=== PATIENT | male | born 1950 | race Caucasian/White ===

== ENCOUNTER → 2017-08-28 | Outpatient (CLI) | payer MEDICARE, OTHER ==
--- NOTE | 2017-09-09 11:01 | P.ARTDOP ---
Arterial Doppler LOWER EXTREMITY ARTERIAL DOPPLER: DATE OF SERVICE: 08/28/2017 Reason for study: Discoloration and decreased pulses left foot. Doppler waveforms: Multiphasic bilaterally throughout. Pulse volume recording: Normal in configuration. Pressure gradients: None. Ankle-brachial indices: Greater than 1 bilaterally. Toe pressures: 157 on the right, 120 on the left Impression: Normal study.
== END | disposition home or self-care (01) ==
LOC: RADUSWWP 12:34
PROVIDERS: ATTEND Internal Medicine
DX: I73.9 Peripheral vascular disease, unspecified (principal)
CPT/HCPCS: 93923

== ENCOUNTER → 2021-03-30 | Outpatient (CLI) | payer MEDICARE ==
[~2021-03-30] MED LIST: REGADENOSON 0.4 MG/5 ML SYRINGE IV PRN
--- NOTE | 2021-03-30 12:39 | P.STRESS ---
- Stress Test Note Stress Test Results/Findings: Exam Performed: NM stress lexiscan cardiolite Exam Date: 03/30/21 Reason for Exam: CP Height: 6 ft Weight: 100 kg Protocol: LEXISCAN CARDIOLITE Stage: NA Duration of Exercise: NA Resting Heart Rate: 56 Resting Blood Pressure: 136/69 Maximum Achieved Heart Rate: 73 Maximum Achieved Blood Pressure: 143/60 85% PMHR: 128 100% PMHR: 150 METS: NA Technologist Comment: Stress Test Results/Findings: Baseline heart rate 56 beats a minute, Baseline blood pressure 136/69 mmHg Baseline twelve-lead EKG shows sinus rhythm normal FL narrow QRS normal ST segments Patient received Lexiscan infusion per protocol No significant change in heart rate blood pressure Occasional PVCs No ECG abnormalities Nuclear portion will be reported separately
--- NOTE | 2021-03-30 12:56 | NM ---
EXAMINATION TYPE: NM stress lexiscan cardiolite DATE OF EXAM: 03/30/2021 COMPARISON: NONE HISTORY: R07.9 chest pain TECHNIQUE: After the intravenous administration of 9.7 mCi Tc 99m Sestamibi - Cardiolite resting SPE CT images acquired 45 minutes post injection. The patient received 0.4mg Lexiscan, 24.8 mCi Tc 99m Sestamibi - Stress images obtained [address] injection FINDINGS: Review of stress and rest SPECT images demonstrates decreased perfusion involving the cardiac apex on stress images. Stress-induced ischemia is not excluded. Gated analysis shows normal wall motion with an estimated left ventricular ejection fraction of 64 %. IMPRESSION: decreased perfusion involving the cardiac apex on stress images. Stress-induced ischemia is not exclu ded.
== END | disposition home or self-care (01) ==
LOC: RADNMMAIN 07:53
PROVIDERS: ATTEND Family Medicine
DX: R07.9 Chest pain, unspecified (principal)
CPT/HCPCS: 93017; 78452; A9500; J2785

== ENCOUNTER → 2021-05-23 | Outpatient (CLI) | payer MEDICARE | END | disposition home or self-care (01) | LOC: RADUSWWP 12:28 | PROVIDERS: ATTEND Family Medicine | DX: R09.89 Other specified symptoms and signs involving the circulatory and respiratory systems (principal); L81.9 Disorder of pigmentation, unspecified | CPT/HCPCS: 93922 ==

== ENCOUNTER → 2022-02-06 | Outpatient (CLI) | payer MEDICARE, OTHER ==
--- NOTE | 2022-02-06 19:20 | CT ---
EXAMINATION TYPE: CT angio chest DATE OF EXAM: 02/06/2022 COMPARISON: None HISTORY: ELEVATED D DIMER CT DLP: 448.1 mGycm Automated exposure control for dose reduction was used. CONTRAST: Performed with IV Contrast, patient injected with 80ml mL of Isovue 370. Images obtained from the thoracic inlet to the diaphragm with the IV contrast. There are Three-D postprocessed images. The lungs are clear of infiltrate. No pleural effusion or pne umothorax. Heart size is normal. No pericardial effusion. Upper abdominal soft tissues are intact. There are no hilar masses. There is no mediastinal adenopathy. Thoracic aorta is intact. There is mil d 4 cm aneurysm of the ascending aorta. No dissection. There is normal contrast opacification of the pulmonary arteries. There is no filling defect. There i s some mild spurring in the thoracic spine. Sternum is intact. IMPRESSION: No evidence of pulmonary embolism. Mild aneurysm of the ascending aorta.
== END | disposition home or self-care (01) ==
LOC: RADCTMAIN 18:02
PROVIDERS: ATTEND Family Medicine
DX: R79.89 Other specified abnormal findings of blood chemistry (principal)
CPT/HCPCS: 71275; Q9967

== ENCOUNTER 2023-05-27 09:17 | Day surgery (SDC) | payer MEDICARE, OTHER ==
[2023-05-27] MEDS ORDERED: LACTATED RINGERS 1,000 ML IV ONE (10:13)
[2023-05-27 10:16] VITALS: TEMP 97.5
[2023-05-27] MEDS ORDERED: PROPOFOL 10 MG/ML 20 ML VIAL IV ONE (10:34)
--- NOTE | 2023-05-27 10:39 | P.GSHP ---
History of Present Illness H&P Date: 05/27/23 Chief Complaint: Abnormal stool study 72-year-old male here for colonoscopy. Had a recent cologuard that was abnormal. No bowel complaints. No family history of colon cancer. Patient had polyps at his last colonoscopy 2012 he says. Past Medical History Past Medical History: Hyperlipidemia, Hypertension Additional Past Medical History / Comment(s): muscle and joint pain, History of Any Multi-Drug Resistant Organisms: None Reported Past Surgical History: No Surgical Hx Reported Past Anesthesia/Blood Transfusion Reactions: No Reported Reaction Smoking Status: Never smoker Medications and Allergies Home Medications Medication Instructions Recorded Confirmed Type Aspirin [Adult Low Dose Aspirin EC] 81 mg PO DAILY 05/26/23 05/26/23 History Atorvastatin Calcium 10 mg PO DAILY 05/26/23 05/27/23 History Losartan Potassium 100 mg PO DAILY 05/26/23 05/26/23 History NIFEdipine [NIFEdipine ER 90 mg PO DAILY 05/26/23 05/26/23 History (Osmotic)] Vit D (Unk) 1 tab PO DAILY 05/26/23 05/26/23 History atenoloL [Tenormin] 50 mg PO DAILY 05/26/23 05/27/23 History Allergies Allergy/AdvReac Type Severity Reaction Status Date / Time allopurinol Allergy Unknown Unknown Verified 05/27/23 09:58 Surgical - Exam Vital Signs Temp Pulse Resp BP Pulse Ox 97.5 F L 58 L 16 152/77 98 05/27/23 10:07 05/27/23 10:07 05/27/23 10:07 05/27/23 10:07 05/27/23 10:07 Physical exam: General: Well-developed, well-nourished HEENT: Normocephalic, sclerae nonicteric Abdomen: Nontender, nondistended Extremities: No edema Neuro: Alert and oriented Assessment and Plan (1) Abnormal stool test Narrative/Plan: Will proceed with colonoscopy at this time. Current Visit: Yes Status: Acute Code(s): R19.5 - OTHER FECAL ABNORMALITIES SNOMED Code(s): 953191077
--- NOTE | 2023-05-27 10:54 | P.PCN ---
Date of Procedure: 05/27/23 Procedure(s) Performed: PREOPERATIVE DIAGNOSIS: Abnormal stool test POSTOPERATIVE DIAGNOSIS: Transverse colon polyp, poor prep PROCEDURE: Colonoscopy with snare polypectomy ANESTHESIA: MAC SURGEON: Stephen Baird M.D. SPECIMENS: Polyp ENDOSCOPIC PROCEDURE: The patient was placed on the endoscopy table in the left decubitus position. The Olympus colonoscope was inserted into the anus and passed under direct visualization to the base of the cecum. The appendiceal orifice was visualized. From that point the scope was slowly withdrawn inspecting all surfaces carefully. There were no neoplastic inflammatory or polypoid lesions throughout the cecum or ascending colon. In the transverse colon a small polyp was seen and removed using the snare with cautery technique. The remainder of the transverse descending sigmoid and rectum was free of any obvious abnormalities. The patient's prep was poor and there was retained liquid and solid stool throughout the colon limiting the visualization of the mucosa. No visible diverticulosis. Digital rectal examination was normal. The patient was taken to the recovery room in stable condition per anesthesia guidelines. RECOMMENDATIONS: Await biopsy results. Recommend repeat colonoscopy in 3-6 months given the patient's poor prep.
[2023-05-27 11:32] VITALS: BP 126/68; PULSE 47; RESP 16
== END 2023-05-27 11:34 | disposition home or self-care (01) ==
LOC: ORWHC2ENDO 09:17
PROVIDERS: ATTEND Surgery
DX: D12.3 Benign neoplasm of transverse colon (principal); R19.5 Other fecal abnormalities; I10 Essential (primary) hypertension; E78.5 Hyperlipidemia, unspecified; Z79.1 Long term (current) use of non-steroidal anti-inflammatories (NSAID); Z79.02 Long term (current) use of antithrombotics/antiplatelets; Z79.82 Long term (current) use of aspirin; Z79.899 Other long term (current) drug therapy; Z98.890 Other specified postprocedural states; Z88.9 Allergy status to unspecified drugs, medicaments and biological substances
CPT/HCPCS: 88305; 45385; J2704

== ENCOUNTER → 2023-08-18 | Outpatient (CLI) | payer MEDICARE, OTHER ==
--- NOTE | 2023-08-18 18:42 | MR ---
EXAMINATION TYPE: MR knee LT wo con DATE OF EXAM: 08/18/2023 COMPARISON: Outside radiographs 08/12/2023 HISTORY: 72-year-old male M25.562 Left knee pain. TECHNIQUE: Multiplanar, multisequence imaging of the left knee is performed without IV contrast. FINDINGS: The ACL and PCL are intact. There is edema on either side of the intact MCL fibers. There is additional heterogeneous signal at the femoral attachment of the LCL proper and diffuse thic kening and heterogeneous signal in the popliteus tendon. Generalized soft tissue swelling. Prominent prepatellar soft tissue swelling with a trace prepatellar bursitis. There is abnormal thickening and intermediate signal and prominent interstitial tearing within the qu adriceps tendon. Prominent thickening of the distal third patellar tendon as well. Some edema within the retropatellar fat pad is noted. There is a mild to moderate joint effusion with mild chronic synovitis. Scattered muscular edema is noted particularly in the quadriceps musculature, to a lesser degree with in the hamstrings musculature, and medial gastrocnemius. There is an oblique tear involving the junction of posterior horn and body of the medial meniscus. Mo derate irregular cartilage thinning along the mid aspect of the medial compartment. On the coronal series, there is horizontally orientated signal involving the anterior horn and body o f the lateral meniscus but not clearly demonstrated on the sagittal series. A subtle horizontal cleav age tear is difficult to exclude. Overall lateral compartment articular cartilage volume is maintaine d. Overall patellofemoral compartment articular cartilage volume is maintained. Normal popliteal artery anatomy and muscle bulk. No suspicious bone marrow replacement. IMPRESSION: 1. Grade 1 sprain of the MCL and femoral attachment of the LCL proper. Additional moderate contusion of the popliteus tendon. 2. Generalized soft tissue swelling. Prominent prepatellar soft tissue swelling with a trace prepatel lar bursitis. 3. Scattered muscular edema may be reactive to altered biomechanics or could represent muscle strains . Moderate knee joint effusion and mild chronic synovitis. 4. Correlate for pronounced tendinosis versus contusion of the quadriceps tendon with edematous thick ening and areas of interstitial tear. No high-grade tear or rupture. Also, moderate insertional martínez lar tendinosis. Some edema within the suprapatellar fat pad may be reactive to the quadriceps tendon injury or could represent fat pad impingement syndrome. 5. Oblique tear at the junction of the posterior horn and body of the medial meniscus. Mild overall m edial compartmental OA. 6. The coronal series shows horizontally oriented signal involving the anterior horn and body of the lateral meniscus. Not confirmed on sagittal series. Unable to exclude subtle horizontal cleavage tear .
== END | disposition home or self-care (01) ==
LOC: RADMRIMAIN 09:59
PROVIDERS: ATTEND Orthopaedic Surgery
DX: M17.12 Unilateral primary osteoarthritis, left knee (principal); M23.322 Other meniscus derangements, posterior horn of medial meniscus, left knee; M67.864 Other specified disorders of tendon, left knee; M70.42 Prepatellar bursitis, left knee; M25.462 Effusion, left knee; M67.862 Other specified disorders of synovium, left knee; M79.89 Other specified soft tissue disorders

== ENCOUNTER → 2023-09-10 | Outpatient (CLI) | payer MEDICARE, OTHER ==
--- NOTE | 2023-09-10 12:30 | MR ---
EXAMINATION TYPE: MR knee RT wo con DATE OF EXAM: 09/10/2023 COMPARISON: 08/12/2023 HISTORY: Right knee pain. TECHNIQUE: Multiplanar, multisequence imaging of the right knee is performed without IV contrast. FINDINGS: MEDIAL MENISCUS: There is grade 3 abnormal signal posterior horn medial meniscus compatible with a li near tear. LATERAL MENISCUS: Grade 3 signal involving the posterior horn and body lateral meniscus compatible wi th tear. CRUCIATE LIGAMENTS: The anterior and posterior cruciate ligaments are intact and unremarkable. COLLATERAL LIGAMENTS: The medial collateral ligament complex is intact and unremarkable. There is increased signal along the lateral margin of the fibular head in the soft tissue just at the site of tendinous complex compatible partial tear of the fibular attachment and the biceps femoris a nd lateral collateral ligament. EXTENSOR MECHANISM: Visualized quadriceps and patellar tendons are intact. There is mixed signal in t he prepatellar space likely representing chronic prepatellar bursitis with hemorrhagic component. EFFUSION: Trace amount of fluid in the suprapatellar bursa. POPLITEAL CYST: There are numerous soft tissue lobulated areas of abnormal fluid signal likely on th e basis of either popliteal fossa or ganglion cyst. TRICOMPARTMENT SPACES: Mild narrowing of the medial compartment and patellofemoral compartment with j oint space with no erosive changes. CARTILAGE: There is a focal area of grade II chondromalacia involving the medial femoral articular ca rtilage. Along the lateral patellar facet there is reduced thickness of the patellar cartilage with a djacent marrow changes compatible with grade III chondromalacia. BONE MARROW SIGNAL: Marrow edema involving the head of the fibula with no definite fracture line most typical of contusion. IMPRESSION: 1. Edema involving the head of the fibula with no definite fracture line. Findings most compatible wi th bone contusion. Microtrabecular fracture in the differential diagnosis 2. There is a partial tear involving the fibular attachment of biceps femoris and lateral collateral ligament. 3. Subtle linear tear posterior horn medial and lateral meniscus. 4. Multiple cystic structures in the posterior soft tissues likely representing popliteal or ganglion cysts. 5. Prepatellar bursitis with hemorrhagic component likely on a remote basis.
== END | disposition home or self-care (01) ==
LOC: RADMRIMAIN 10:06
PROVIDERS: ATTEND Orthopaedic Surgery
DX: M23.641 Other spontaneous disruption of lateral collateral ligament of right knee (principal); M23.321 Other meniscus derangements, posterior horn of medial meniscus, right knee; M23.351 Other meniscus derangements, posterior horn of lateral meniscus, right knee; M79.89 Other specified soft tissue disorders; M70.41 Prepatellar bursitis, right knee; R60.0 Localized edema

== ENCOUNTER 2023-09-24 07:49 | Day surgery (SDC) | payer MEDICARE, OTHER ==
--- NOTE | 2023-09-23 19:16 | HP ---
HISTORY AND PHYSICAL Surgery is scheduled for 09/24/2023. HISTORY OF PRESENT ILLNESS: Prieto Fournier is a 72-year-old gentleman seen with progressive left knee pain. We discussed options regarding treatment. He elected to proceed with left knee arthroscopy. Consent was obtained. Cardiac clearance was provided. PAST MEDICAL HISTORY: Hypertension, hyperlipidemia, cardiovascular disease. PAST SURGICAL HISTORY: Noncontributory. DAILY MEDICATIONS: 1. Aspirin. 2. Atenolol. 3. Atorvastatin. 4. Losartan. 5. Cardizem. ALLERGIES: Allopurinol. SOCIAL HISTORY: Denies tobacco use. PHYSICAL EVALUATION OF THE LEFT KNEE: His range of motion is 0 to 120 degrees. He has mild effusion. Tenderness along the medial and lateral joint lines. He has a positive medial and positive lateral Eyad's. Ligaments are stable. Hip rotation is without pain. Distal neurovascular exam is intact. IMAGING STUDIES: Left knee radiographs revealed mild osteoarthritis. Left knee MRI revealed medial meniscal tear, possible lateral meniscal tear, tenosynovitis. IMPRESSION: 1. Internal derangement of left knee with medial meniscal tear. 2. Hypertension. 3. Hyperlipidemia. 4. Cardiovascular disease. PLAN: Left knee arthroscopy with partial medial meniscectomy, partial synovectomy, and debridement. MMODL / IJN: [id number] /
[2023-09-24] MEDS: LACTATED RINGERS 1,000 ML IV ONE (08:40)
[2023-09-24] MEDS ORDERED: LIDOCAINE 1% (10MG/ML) FOR IV START INTRADERMA PRN (08:54)
[2023-09-24] MEDS ORDERED: LACTATED RINGERS 1,000 ML IV SCH (08:54)
[2023-09-24] MEDS ORDERED: HYDROmorphone 0.5 MG/0.5 ML SYRINGE IVP PRN (08:54)
[2023-09-24] MEDS: DEXAMETHASONE SOD PHOSPHATE 4 MG/ML 1 ML VIAL IV ONE (08:55)
[2023-09-24] MEDS: ONDANSETRON 4 MG/2 ML VIAL IVP ONE (08:55)
[2023-09-24 09:17] VITALS: RESP 18
[2023-09-24] MEDS ORDERED: LIDOCAINE 1% INJ 10MG/ML (20 ML MDV) ONE (09:20)
[2023-09-24] MEDS ORDERED: fentaNYL (PF) 50 MCG/ML 2 ML AMP ONE (09:20)
[2023-09-24] MEDS ORDERED: GLYCOPYRROLATE 0.2 MG/ML 2 ML VIAL ONE (09:20)
[2023-09-24] MEDS ORDERED: PROPOFOL 10 MG/ML 20 ML VIAL IV ONE (09:20)
[2023-09-24] MEDS ORDERED: MIDAZOLAM 2 MG/2 ML VIAL ONE (09:20)
[2023-09-24] MEDS: BUPIVACAINE (PF) 0.25% 30 ML VIAL SQ ONE (09:45)
--- NOTE | 2023-09-24 10:12 | P.OP ---
Date of Procedure: 09/24/23 Preoperative Diagnosis: Internal derangement left knee Postoperative Diagnosis: 1. Tear medial and lateral meniscus left knee 2. Grade IV chondromalacia medial femoral condyle left knee 3. Reactive synovitis medial, lateral and suprapatellar compartments left knee Procedure(s) Performed: 1. Arthroscopic partial medial and lateral meniscectomy left knee 2. Arthroscopic microfracture medial femoral condyle left knee 3. Arthroscopic partial synovectomy medial, lateral and suprapatellar compartments left knee Anesthesia: DIA, local Surgeon: Levy Chau Estimated Blood Loss (ml): 5 Pathology: none sent Condition: stable Disposition: PACU Indications for Procedure: 72-year-old patient seen with progressive left knee pain. After having treatment options discussed, he elected to proceed with arthroscopy. Operative Findings: See description of procedure Description of Procedure: Patient was taken to the operative suite. Patient underwent a general anesthetic by the department of anesthesia. Patient was given preoperative antibiotics. The left lower extremity was placed in a well-padded arthroscopic leg downing. The left leg was prepped and draped in the normal sterile orthopedic fashion. A lateral parapatellar and suprapatellar incision was made. Trochars were inserted. Arthroscopy was initiated. Suprapatellar pouch revealed diffuse thick reactive synovitis. The patellofemoral joint appeared to articular congruently. There was mild grade I chondromalacia. The scope was guided into the medial gutter. No loose bodies or plica were identified. The scope was then guided into the medial compartment. A medial parapatellar incision was made. Trocar inserted followed by probe. There was a radial tear involving the posterior horn of the medial meniscus. There was thick reactive synovitis anteriorly. There was an area of grade III/IV chondromalacia involving the medial femoral condyle with some large osteochondral flap tears. I performed a partial medial meniscectomy getting down to stable meniscal tissue. I performed a chondroplasty of the medial femoral condyle getting down to stable osteochondral tissue. I performed a partial synovectomy decompressing the reactive synovitis anteriorly. I did note an area of grade IV chondromalacia/exposed bone along the medial femoral condyle measuring about a centimeter in diameter. I introduced a microfracture awl and I performed a microfracture to that area of exposed bone penetrating the bone with resultant bleeding at the microfracture site. The residual meniscus was probed and was found to be stable. The residual osteochondral surface was stable. There was good decompression of the synovitis. Scope and probe were then guided into the intercondylar notch. Cruciates were identified, probed and found to be stable. The scope and probe were then guided into lateral compartment. There was a radial tear mid body lateral meniscus. There was thick reactive synovitis anteriorly. There was grade I chondromalacia of the lateral compartment with no significant tearing. I performed a partial lateral meniscectomy getting down to stable meniscal tissue. I performed a partial synovectomy decompressing the reactive synovitis. The residual meniscus was stable. There was good decompression of the synovitis. The scope was in guided back into the suprapatellar compartment. I introduced a motorized shaver into the suprapatellar compartment. I performed a partial synovectomy. The shaver was removed. There was good decompression of the synovitis. I now took one more look around the entire knee, no residual debris. Instruments were now removed from the joint. The joint was infiltrated with .25% Marcaine. Steri-Strips were applied to the portal sites. Sterile dressings were applied. The patient was placed into a PREETI hose. No tourniquet was utilized. The patient was awakened, transferred to a bed and taken to recovery stable satisfactory condition.
[2023-09-24 10:28] VITALS: TEMP 97
[2023-09-24 12:13] VITALS: BP 122/71; PULSE 55
== END 2023-09-24 12:00 | disposition home or self-care (01) ==
LOC: OR 07:49
PROVIDERS: ATTEND Orthopaedic Surgery
DX: S83.282A Other tear of lateral meniscus, current injury, left knee, initial encounter (principal); M65.162 Other infective (teno)synovitis, left knee; M22.42 Chondromalacia patellae, left knee; I25.10 Atherosclerotic heart disease of native coronary artery without angina pectoris; I10 Essential (primary) hypertension; M19.90 Unspecified osteoarthritis, unspecified site; K21.9 Gastro-esophageal reflux disease without esophagitis; E78.5 Hyperlipidemia, unspecified; Z79.82 Long term (current) use of aspirin; Z79.899 Other long term (current) drug therapy; Z88.8 Allergy status to other drugs, medicaments and biological substances; X58.XXXA Exposure to other specified factors, initial encounter
CPT/HCPCS: 29880; 29879; J2250; J1100; J0690; J2405; J2001; J3010; J2704; J0665

== ENCOUNTER 2024-10-21 23:20 | Observation (INO) | payer MEDICARE, OTHER ==
--- NOTE | 2024-10-21 23:48 | ED ---
Abdominal Pain HPI - General Source: patient Mode of arrival: ambulatory Limitations: no limitations <Era De Jesus - Last Filed: 10/22/24 03:46> <Steven Bradley - Last Filed: 10/22/24 04:26> - General Chief Complaint: Abdominal Pain Stated Complaint: ABD Pain Time Seen by Provider: 10/21/24 23:27 - History of Present Illness Initial Comments: 73-year-old male presenting with chief complaint of abdominal pain. Patient reports that the pain started tonight around 8:00. This was a squeezing and twisting pain in the bilateral upper quadrants. States that he called his daughter to bring him to the hospital. While on his way here around 11pm he threw up and states that his pain has been gone since. Denies hematemesis, however states that it was dark so we could not completely see. No diarrhea. N o hematochezia or melena. No urinary symptoms. No fever. No chest pain or difficulty breathing. No history of abdominal surgeries. No URI-like symptoms. (Era De Jesus) - Related Data Home Medications Medication Instructions Recorded Confirmed Aspirin [Adult Low Dose Aspirin EC] 81 mg PO DAILY 05/26/23 09/19/23 Atorvastatin Calcium 10 mg PO DAILY 05/26/23 09/19/23 Losartan Potassium 100 mg PO DAILY 05/26/23 09/19/23 NIFEdipine [NIFEdipine ER 90 mg PO DAILY 05/26/23 09/19/23 (Osmotic)] Vit D (Unk) 1 tab PO DAILY 05/26/23 09/19/23 atenoloL [Tenormin] 50 mg PO DAILY 05/26/23 09/19/23 Previous Rx's Medication Instructions Recorded traMADol HCl [Ultram] 50 mg PO Q6H PRN #12 tab 09/24/23 Allergies Allergy/AdvReac Type Severity Reaction Status Date / Time allopurinol Allergy Unknown Unknown Verified 10/21/24 23:25 Review of Systems ROS Other: All systems not noted in ROS Statement are negative. <Era De Jesus - Last Filed: 10/22/24 03:46> ROS Other: All systems not noted in ROS Statement are negative. <Steven Bradley - Last Filed: 10/22/24 04:26> ROS Statement: Those systems with pertinent positive or pertinent negative responses have been documented in the HPI. Past Medical History Past Medical History: Hyperlipidemia, Hypertension, Osteoarthritis (OA) Additional Past Medical History / Comment(s): gout, muscle and joint pain History of Any Multi-Drug Resistant Organisms: None Reported Past Surgical History: No Surgical Hx Reported Additional Past Surgical History / Comment(s): colonoscopy Past Anesthesia/Blood Transfusion Reactions: No Reported Reaction Past Psychological History: No Psychological Hx Reported Smoking Status: Never smoker Past Alcohol Use History: None Reported Past Drug Use History: None Reported <Era De Jesus - Last Filed: 10/22/24 03:46> General Exam Limitations: no limitations General appearance: alert, in no apparent distress Head exam: Present: atraumatic, normocephalic, normal inspection Eye exam: Present: normal appearance, EOMI Neck exam: Present: normal inspection. Absent: meningismus Respiratory exam: Present: normal lung sounds bilaterally. Absent: respiratory distress, wheezes, rales, rhonchi, stridor Cardiovascular Exam: Present: regular rate, normal rhythm, normal heart sounds. Absent: systolic murmur, diastolic murmur, rubs, gallop, clicks GI/Abdominal exam: Present: soft. Absent: distended, tenderness, guarding, rebound, rigid Neurological exam: Present: alert, oriented X3 Psychiatric exam: Present: normal affect, normal mood Skin exam: Present: warm, dry, normal color <Era De Jesus - Last Filed: 10/22/24 03:46> Course Vital Signs 10/21/24 10/22/24 23:22 01:24 Temperature 97.3 F L Pulse Rate 82 73 Respiratory 17 18 Rate Blood Pressure 168/72 170/83 O2 Sat by Pulse 97 98 Oximetry Medical Decision Making - Lab Data Result diagrams: 10/22/24 00:02 10/22/24 00:02 <Era De Jesus - Last Filed: 10/22/24 03:46> - Lab Data Result diagrams: 10/22/24 00:02 10/22/24 00:02 <Steven Bradley - Last Filed: 10/22/24 04:26> - Medical Decision Making Was pt. sent in by a medical professional or institution (, PA, SERVICE CLEANER, urgent care, hospital, or care home...) When possible be specific @ -No Did you speak to anyone other than the patient for history (EMS, parent, family, police, friend...)? What history was obtained from this source @ -No Did you review nursing and triage notes (agree or disagree)? Why? @ -I reviewed and agree with nursing and triage notes Were old charts reviewed (outside hosp., previous admission, EMS record, old EKG, old radiological studies, urgent care reports/EKG's, care home records)? Report findings @ -No old charts were reviewed Differential Abdominal Pain Men: Appendicitis, cholecystitis, diverticulosis, ischemic bowel, pancreatitis, hepatitis, UTI, gastroenteritis, AAA, incarcerated hernia, bowel obstruction, constipation, inflammatory bowel, hepatitis, peptic ulcer disease, splenic infarction, perforated viscus, testicular torsion, this is not meant to be an all-inclusive list EKG interpreted by me (3pts min.). @ -As above X-rays interpreted by me (1pt min.). @ -None done CT interpreted by me (1pt min.). @ -None done U/S interpreted by me (1pt. min.). @ -ReSound shows gallbladder wall thickening with pericholecystic fluid, concerning for acute cholecystitis What testing was considered but not performed or refused? (CT, X-rays, U/S, labs)? Why? @ -None What meds were considered but not given or refused? Why? @ -None Did you discuss the management of the patient with other professionals (professionals i.e. , PA, SERVICE CLEANER, lab, RT, psych nurse, social and human services assistant, student support counselor, teacher, strike warfare/missile systems officer, special education case manager)? Give summary @ -No Was smoking cessation discussed for >3mins.? @ -No Was critical care preformed (if so, how long)? @ -No Were there social determinants of health that impacted care today? How? (Homelessness, low income, unemployed, alcoholism, drug addiction, transportatio n, low edu. Level, literacy, decrease access to med. care, senior care, rehab)? @ -No Was there de-escalation of care discussed even if they declined (Discuss DNR or withdrawal of care, Hospice)? DNR status @ -No What co-morbidities impacted this encounter? (DM, HTN, Smoking, COPD, CAD, Cancer, CVA, ARF, Chemo, Hep., AIDS, mental health diagnosis, sleep apnea, morbid obesity)? @ -None Was patient admitted / discharged? Hospital course, mention meds given and route, prescriptions, significant lab abnormalities, going to OR and other pertinent info. @73-year-old male presenting with epigastric pain nausea vomiting. Patient has a mild leukocytosis and elevated AST ALT and mildly elevated bilirubin at 2.4. Ultrasound is performed of the right upper quadrant which shows gallbladder wall thickening and pericholecystic fluid. There is concern for acute cholecystitis. There is a normal common bile duct. Case discussed with Dr. Durant covering for general surgery. Undiagnosed new problem with uncertain prognosis? @ -No Drug Therapy requiring intensive monitoring for toxicity (Heparin, Nitro, Insulin, Cardizem)? @ -No Were any procedures done? @ -No Diagnosis/symptom? @ -[Acute cholecystitis Acute, or Chronic, or Acute on Chronic? @ -Acute Uncomplicated (without systemic symptoms) or Complicated (systemic symptoms)? @ -[default Side effects of treatment? @ -No Exacerbation, Progression, or Severe Exacerbation? @ -No Poses a threat to life or bodily function? How? (Chest pain, USA, CT, pneumonia, PE, COPD, DKA, ARF, appy, cholecystitis, CVA, Diverticulitis, Homicidal, Suicidal, threat to staff... and all critical care pts) @ -Yes, sepsis (Steven Bradley) - Lab Data Lab Results 10/22/24 10/22/24 10/22/24 Range/Units 00:02 00:02 00:02 WBC 13.4 H (3.8-10.6) k/uL RBC 5.58 (4.30-5.90) m/uL Hgb 16.5 (13.0-17.5) gm/dL Hct 50.6 (39.0-53.0) % MCV 90.8 (80.0-100.0) fL MCH 29.6 (25.0-35.0) pg MCHC 32.6 (31.0-37.0) g/dL RDW 13.3 (11.5-15.5) % Plt Count 237 (150-450) k/uL MPV 7.0 Neutrophils % 91 % Lymphocytes % 5 % Monocytes % 3 % Eosinophils % 1 % Basophils % 0 % Neutrophils # 12.2 H (1.3-7.7) k/uL Lymphocytes # 0.6 L (1.0-4.8) k/uL Monocytes # 0.4 (0-1.0) k/uL Eosinophils # 0.1 (0-0.7) k/uL Basophils # 0.0 (0-0.2) k/uL Sodium 137 (137-145) mmol/L Potassium 4.4 (3.5-5.1) mmol/L Chloride 99 (98-107) mmol/L Carbon Dioxide 26 (22-30) mmol/L Anion Gap 12 mmol/L BUN 23 H (9-20) mg/dL Creatinine 1.19 (0.66-1.25) mg/dL Est GFR (CKD-EPI)AfAm 70 (>60 ml/min/1.73 sqM) Est GFR (CKD-EPI)NonAf 60 (>60 ml/min/1.73 sqM) Glucose 172 H (74-99) mg/dL Lactic Ac Sepsis Rflx Plasma Lactic Acid Shady 3.0 H* (0.7-2.0) mmol/L Calcium 9.4 (8.4-10.2) mg/dL Total Bilirubin 2.4 H (0.2-1.3) mg/dL AST 261 H (17-59) U/L ALT 94 H (4-49) U/L Alkaline Phosphatase 194 H (38-126) U/L Troponin I (0.000-0.034) ng/mL Total Protein 8.3 H (6.3-8.2) g/dL Albumin 5.1 H (3.5-5.0) g/dL Amylase 65 (30-110) U/L Lipase 246 (23-300) U/L Urine Color Urine Appearance (Clear) Urine pH (5.0-8.0) Ur Specific [place] (1.001-1.035) Urine Protein (Negative) Urine Glucose (UA) (Negative) Urine Ketones (Negative) Urine Blood (Negative) Urine Nitrite (Negative) Urine Bilirubin (Negative) Urine Urobilinogen (<2.0) mg/dL Ur Leukocyte Esterase (Negative) 10/22/24 10/22/24 10/22/24 Range/Units 00:02 00:55 02:33 WBC (3.8-10.6) k/uL RBC (4.30-5.90) m/uL Hgb (13.0-17.5) gm/dL Hct (39.0-53.0) % MCV (80.0-100.0) fL MCH (25.0-35.0) pg MCHC (31.0-37.0) g/dL RDW (11.5-15.5) % Plt Count (150-450) k/uL MPV Neutrophils % % Lymphocytes % % Monocytes % % Eosinophils % % Basophils % % Neutrophils # (1.3-7.7) k/uL Lymphocytes # (1.0-4.8) k/uL Monocytes # (0-1.0) k/uL Eosinophils # (0-0.7) k/uL Basophils # (0-0.2) k/uL Sodium (137-145) mmol/L Potassium (3.5-5.1) mmol/L Chloride (98-107) mmol/L Carbon Dioxide (22-30) mmol/L Anion Gap mmol/L BUN (9-20) mg/dL Creatinine (0.66-1.25) mg/dL Est GFR (CKD-EPI)AfAm (>60 ml/min/1.73 sqM) Est GFR (CKD-EPI)NonAf (>60 ml/min/1.73 sqM) Glucose (74-99) mg/dL Lactic Ac Sepsis Rflx Y Plasma Lactic Acid Shady (0.7-2.0) mmol/L Calcium (8.4-10.2) mg/dL Total Bilirubin (0.2-1.3) mg/dL AST (17-59) U/L ALT (4-49) U/L Alkaline Phosphatase (38-126) U/L Troponin I <0.012 (0.000-0.034) ng/mL Total Protein (6.3-8.2) g/dL Albumin (3.5-5.0) g/dL Amylase (30-110) U/L Lipase (23-300) U/L Urine Color Light Yellow Urine Appearance Clear (Clear) Urine pH 7.0 (5.0-8.0) Ur Specific [place] 1.015 (1.001-1.035) Urine Protein Trace H (Negative) Urine Glucose (UA) Negative (Negative) Urine Ketones Negative (Negative) Urine Blood Negative (Negative) Urine Nitrite Negative (Negative) Urine Bilirubin Negative (Negative) Urine Urobilinogen <2.0 (<2.0) mg/dL Ur Leukocyte Esterase Negative (Negative) 10/22/24 Range/Units 03:39 WBC (3.8-10.6) k/uL RBC (4.30-5.90) m/uL Hgb (13.0-17.5) gm/dL Hct (39.0-53.0) % MCV (80.0-100.0) fL MCH (25.0-35.0) pg MCHC (31.0-37.0) g/dL RDW (11.5-15.5) % Plt Count (150-450) k/uL MPV Neutrophils % % Lymphocytes % % Monocytes % % Eosinophils % % Basophils % % Neutrophils # (1.3-7.7) k/uL Lymphocytes # (1.0-4.8) k/uL Monocytes # (0-1.0) k/uL Eosinophils # (0-0.7) k/uL Basophils # (0-0.2) k/uL Sodium (137-145) mmol/L Potassium (3.5-5.1) mmol/L Chloride (98-107) mmol/L Carbon Dioxide (22-30) mmol/L Anion Gap mmol/L BUN (9-20) mg/dL Creatinine (0.66-1.25) mg/dL Est GFR (CKD-EPI)AfAm (>60 ml/min/1.73 sqM) Est GFR (CKD-EPI)NonAf (>60 ml/min/1.73 sqM) Glucose (74-99) mg/dL Lactic Ac Sepsis Rflx Plasma Lactic Acid Shady 3.2 H* (0.7-2.0) mmol/L Calcium (8.4-10.2) mg/dL Total Bilirubin (0.2-1.3) mg/dL AST (17-59) U/L ALT (4-49) U/L Alkaline Phosphatase (38-126) U/L Troponin I (0.000-0.034) ng/mL Total Protein (6.3-8.2) g/dL Albumin (3.5-5.0) g/dL Amylase (30-110) U/L Lipase (23-300) U/L Urine Color Urine Appearance (Clear) Urine pH (5.0-8.0) Ur Specific [place] (1.001-1.035) Urine Protein (Negative) Urine Glucose (UA) (Negative) Urine Ketones (Negative) Urine Blood (Negative) Urine Nitrite (Negative) Urine Bilirubin (Negative) Urine Urobilinogen (<2.0) mg/dL Ur Leukocyte Esterase (Negative) Disposition <Era De Jesus - Last Filed: 10/22/24 03:46> Is patient prescribed a controlled substance at d/c from ED?: No Time of Disposition: 04:26 <Steven Bradley - Last Filed: 10/22/24 04:26> Clinical Impression: Acute cholecystitis Disposition: ADMITTED IP TO THIS HOSP Condition: Stable Referrals: Nonstaff,Physician [REFERRING] - 1-2 days
[2024-10-22] MEDS: SODIUM CHLORIDE 0.9% 500 ML 500 ML IV ONE
[2024-10-22 00:26] LABS: Basophils % (A) 0 %; Eosinophils # (A) 0.1 k/uL (0-0.7); Eosinophils % (A) 1 %; HCT 50.6 % (39.0-53.0); HGB 16.5 gm/dL (13.0-17.5); Lymphocytes # (A) 0.6 k/uL (1.0-4.8); Lymphocytes % (A) 5 %; MCH 29.6 pg (25.0-35.0); MCHC 32.6 g/dL (31.0-37.0); MCV 90.8 fL (80.0-100.0); Monocytes # (A) 0.4 k/uL (0-1.0); Monocytes % (A) 3 %; Neutrophils # (A) 12.2 k/uL (1.3-7.7); Neutrophils % (A) 91 %; Platelet Count 237 k/uL (150-450); RBC 5.58 m/uL (4.30-5.90); RDW 13.3 % (11.5-15.5); WBC 13.4 k/uL (3.8-10.6)
[2024-10-22 00:44] LABS: ALT 94 U/L (4-49); African American GFR (CKD) 70 (>60 ml/min/1.73 sqM); Albumin 5.1 g/dL (3.5-5.0); Amylase 65 U/L (30-110); Anion Gap 12 mmol/L; Blood Urea Nitrogen 23 mg/dL (9-20); Calcium 9.4 mg/dL (8.4-10.2); Carbon Dioxide 26 mmol/L (22-30); Chloride 99 mmol/L (98-107); Glucose 172 mg/dL (74-99); Lipase 246 U/L (23-300); Non-African American GFR(CKD) 60 (>60 ml/min/1.73 sqM); Sodium 137 mmol/L (137-145); Total Bilirubin 2.4 mg/dL (0.2-1.3); Total Protein 8.3 g/dL (6.3-8.2)
[2024-10-22 00:46] LABS: AST 261 U/L (17-59); Alkaline Phosphatase 194 U/L (38-126); Potassium 4.4 mmol/L (3.5-5.1)
[2024-10-22 02:55] LABS: Appearance,Urine Clear (Clear); Bilirubin,Urine Negative (Negative); Blood,Urine Negative (Negative); Color,Urine Light Yellow; Glucose,Urine (UA) Negative (Negative); Ketones,Urine Negative (Negative); Leukocyte Esterase,Urine Negative (Negative); Nitrite,Urine Negative (Negative); Protein,Urine Trace (Negative); Specific Gravity,Urine 1.015 (1.001-1.035); Urobilinogen,Urine <2.0 mg/dL (<2.0)
--- NOTE | 2024-10-22 03:59 | US ---
EXAM: US Abdomen Complete CLINICAL HISTORY: ITS.REASON US Reason: Abdominal pain epigastric TECHNIQUE: Real-time ultrasound of the abdomen with image documentation. COMPARISON: No relevant prior studies available. FINDINGS: Liver: Increased echogenicity of the liver. The liver measures 21.2 cm. No intrahepatic bile duct dilation. Gallbladder: Thickening of the gallbladder wall measuring 8.6 mm. Cholelithiasis. Gallbladder sludge. Common bile duct: Unremarkable as visualized. No stones. No dilation. Pancreas: Unremarkable as visualized. Kidneys: Unremarkable. No stones. No solid mass. No hydronephrosis. Spleen: Unremarkable. No splenomegaly. Aorta: Unremarkable. No abdominal aortic aneurysm. Inferior vena cava: Unremarkable. IMPRESSION: 1. Hepatomegaly and hepatic steatosis. 2. Gallbladder wall thickening which may represent acute cholecystitis in the correct clinical setting.
[2024-10-22] MEDS: PIPERACILLIN-TAZOBACTAM 3.375 GM in SODIUM CHLORIDE 0.9% 100 ML IVPB STA (04:08)
[2024-10-22] MEDS ORDERED: NALOXONE 0.4 MG/ML 1 ML VIAL IV PRN (04:26)
[2024-10-22] MEDS: LACTATED RINGERS 1,000 ML IV ONE (04:56)
[2024-10-22] MEDS: LACTATED RINGERS 1,000 ML IV SCH (04:57)
[2024-10-22 08:50] LABS: Basophils % (A) 0 %; Eosinophils # (A) 0.1 k/uL (0-0.7); Eosinophils % (A) 1 %; HCT 44.6 % (39.0-53.0); HGB 14.7 gm/dL (13.0-17.5); Lymphocytes # (A) 0.9 k/uL (1.0-4.8); Lymphocytes % (A) 8 %; MCH 30.1 pg (25.0-35.0); MCV 91.1 fL (80.0-100.0); Mean Platelet Volume 7.1; Monocytes # (A) 0.6 k/uL (0-1.0); Monocytes % (A) 6 %; Neutrophils # (A) 9.1 k/uL (1.3-7.7); Neutrophils % (A) 85 %; Platelet Count 196 k/uL (150-450); RDW 13.5 % (11.5-15.5); WBC 10.8 k/uL (3.8-10.6)
[2024-10-22 09:01] LABS: ALT 217 U/L (4-49); AST 392 U/L (17-59); African American GFR (CKD) 86 (>60 ml/min/1.73 sqM); Albumin 3.9 g/dL (3.5-5.0); Alkaline Phosphatase 204 U/L (38-126); Anion Gap 10 mmol/L; Blood Urea Nitrogen 18 mg/dL (9-20); Carbon Dioxide 25 mmol/L (22-30); Chloride 100 mmol/L (98-107); Glucose 135 mg/dL (74-99); Non-African American GFR(CKD) 74 (>60 ml/min/1.73 sqM); Potassium 4.7 mmol/L (3.5-5.1); Sodium 135 mmol/L (137-145); Total Bilirubin 3.6 mg/dL (0.2-1.3); Total Protein 6.4 g/dL (6.3-8.2)
[2024-10-22] MEDS ORDERED: ACETAMINOPHEN TAB 325 MG TAB PO PRN (09:17)
[2024-10-22] MEDS: PIPERACILLIN-TAZOBACTAM 3.375 GM in SODIUM CHLORIDE 0.9% 100 ML IVPB SCH (11:23)
--- NOTE | 2024-10-22 11:26 | P.GSHP ---
History of Present Illness H&P Date: 10/22/24 CHIEF COMPLAINT: Abdominal pain HISTORY OF PRESENT ILLNESS: This is a 73-year-old male who presented to the hospital with complaints of severe abdominal pain in the upper mid abdomen. He describes the pain as like a twisting sensation. Patient reports pain started yesterday evening around 730. He had eaten chicken patties for dinner. And then later in the evening pain started. Pain became so severe he came into the ER for evaluation. On the drive into the ER he had 1 episode of vomiting. After the vomiting his pain did improve. He does report a couple days ago has noted some swelling in the right upper quadrant. He currently has no abdominal pain. Patient did have elevated total bilirubin, LFTs and a lactic acid level was elevated. Gallbladder ultrasound reported gallbladder wall thickening, gallstones and sludge. Patient denies any chest pain or shortness of breath. Denies any fever chills or sweats. Patient does report having an enlarged aorta. He denies any prior abdominal surgeries. PAST MEDICAL HISTORY: Hypertension, hyperlipidemia, osteoarthritis, gout PAST SURGICAL HISTORY: See below MEDICATIONS: See below ALLERGIES: See below SOCIAL HISTORY: No illicit drug use. REVIEW OF SYSTEMS: CONSTITUTIONAL: Denies fever or chills. HEENT: Denies blurred vision, vision changes, or eye pain. Denies hemoptysis CARDIOVASCULAR: Denies chest pain or pressure. RESPIRATORY: No shortness of breath. GASTROINTESTINAL: See HPI for pertinent findings HEMATOLOGIC: Denies bleeding disorders. GENITOURINARY: Denies any blood in urine or increased urinary frequency. SKIN: Denies pruitis. Denies rash. PHYSICAL EXAM: VITAL SIGNS: Reviewed GENERAL: Well-developed in no acute distress. HEENT: No sclera icterus. Extraocular movements grossly intact. Moist buccal mucosa. Head is atraumatic, normocephalic. No nasal drainage. ABDOMEN: Soft. Nondistended. Nontender. No rebound or guarding noted. NEUROLOGIC: Alert and oriented. Cranial nerves II through XII grossly intact. LABORATORY DATA: WBC 13.4 down to 10.8 Hgb 14.7 platelets 196 Sodium is 135 potassium 4.7 creatinine 1.0 Lactic acid level down from 5.3-1.9 Total bilirubin 2.4 to 3.6 LFTs trending upwards AST 392 ALT 217 alk phos 204 Lipase 246 IMAGING: Abdominal ultrasound reports hepatomegaly and hepatic steatosis. Gallbladder wall thickening measuring 8.6 mm which may represent acute cholecystitis. Cholelithiasis and gallbladder sludge ASSESSMENT: 1. Acute cholecystitis 2. Possible choledocholithiasis. Elevated total bilirubin and LFTs 3. Elevated lactic acid level improved PLAN: - Patient scheduled for an MRCP to evaluate for possible choledocholithiasis - Consult cardiology for cardiac clearance for cholecystectomy - Consult medicine service for medical management - Continue to monitor total bilirubin and LFTs - Continue IV antibiotics - Continue IV fluids - Tylenol ordered for headache Physician [facility] [place] [facility] note has been reviewed by physician. Signing provider agrees with the documented findings, assessment, and plan of care. Attestation Patient seen and examined at bedside on 10/22/2024 in the emergency department. Presented with chief complaint of epigastric abdominal pain. Found to have leukocytosis and elevated lactic acidosis. Workup included abdominal ultrasound showing gallbladder wall thickening concerning for acute cholecystitis along with cholelithiasis and gallbladder sludge. Patient also noted to have some increase in total bilirubin at 3.6. Secondary to these findings, plan is for MRCP for further evaluation. Cardiology on board for cardiac clearance for cholecystectomy. Continue IV antibiotics and IV fluids. Will further evaluate lactic acidosis to confirm resolution. Armen Laughlin DO Past Medical History Past Medical History: Hyperlipidemia, Hypertension, Osteoarthritis (OA) Additional Past Medical History / Comment(s): gout, muscle and joint pain History of Any Multi-Drug Resistant Organisms: None Reported Past Surgical History: No Surgical Hx Reported Additional Past Surgical History / Comment(s): colonoscopy Past Anesthesia/Blood Transfusion Reactions: No Reported Reaction Past Psychological History: No Psychological Hx Reported Smoking Status: Never smoker Past Alcohol Use History: None Reported Past Drug Use History: None Reported Medications and Allergies Home Medications Medication Instructions Recorded Confirmed Type Aspirin [Adult Low Dose Aspirin EC] 81 mg PO DAILY 05/26/23 10/22/24 History Atorvastatin Calcium 10 mg PO DAILY 05/26/23 10/22/24 History Losartan Potassium 100 mg PO DAILY 05/26/23 10/22/24 History atenoloL [Tenormin] 50 mg PO DAILY 05/26/23 10/22/24 History Betamethasone Dipropionate 1 applic TOPICAL BID PRN 10/22/24 10/22/24 History [Betamethasone Dipropionate 0.05% Cream] NIFEdipine XL [Procardia Xl] 90 mg PO DAILY 10/22/24 10/22/24 History Allen-3/Dha/Epa/Fish Oil [Fish Oil 1 cap PO BID 10/22/24 10/22/24 History 1,000 mg Softgel] tadalafiL [Cialis] 5 mg PO DAILY PRN 10/22/24 10/22/24 History Allergies Allergy/AdvReac Type Severity Reaction Status Date / Time allopurinol Allergy Unknown Unknown Verified 10/22/24 06:50 Surgical - Exam Osteopathic Statement: *. No significant issues noted on an osteopathic structural exam other than those noted in the History and Physical/Consult. Vital Signs Temp Pulse Resp BP Pulse Ox 97.3 F L 82 17 168/72 97 10/21/24 23:22 10/21/24 23:22 10/21/24 23:22 10/21/24 23:22 10/21/24 23:22 Results - Labs 10/23/24 00:00 10/23/24 00:00 Abnormal Lab Results - Last 24 Hours (Table) 10/22/24 10/22/24 10/22/24 Range/Units 00:02 00:02 00:02 WBC 13.4 H (3.8-10.6) k/uL Neutrophils # 12.2 H (1.3-7.7) k/uL Lymphocytes # 0.6 L (1.0-4.8) k/uL Sodium (137-145) mmol/L BUN 23 H (9-20) mg/dL Glucose 172 H (74-99) mg/dL Plasma Lactic Acid Shady 3.0 H* (0.7-2.0) mmol/L Total Bilirubin 2.4 H (0.2-1.3) mg/dL AST 261 H (17-59) U/L ALT 94 H (4-49) U/L Alkaline Phosphatase 194 H (38-126) U/L Total Protein 8.3 H (6.3-8.2) g/dL Albumin 5.1 H (3.5-5.0) g/dL Urine Protein (Negative) 10/22/24 10/22/24 10/22/24 Range/Units 02:33 03:39 06:18 WBC (3.8-10.6) k/uL Neutrophils # (1.3-7.7) k/uL Lymphocytes # (1.0-4.8) k/uL Sodium (137-145) mmol/L BUN (9-20) mg/dL Glucose (74-99) mg/dL Plasma Lactic Acid Shady 3.2 H* 5.3 H* (0.7-2.0) mmol/L Total Bilirubin (0.2-1.3) mg/dL AST (17-59) U/L ALT (4-49) U/L Alkaline Phosphatase (38-126) U/L Total Protein (6.3-8.2) g/dL Albumin (3.5-5.0) g/dL Urine Protein Trace H (Negative) 10/22/24 10/22/24 Range/Units 08:38 08:38 WBC 10.8 H (3.8-10.6) k/uL Neutrophils # 9.1 H (1.3-7.7) k/uL Lymphocytes # 0.9 L (1.0-4.8) k/uL Sodium 135 L (137-145) mmol/L BUN (9-20) mg/dL Glucose 135 H (74-99) mg/dL Plasma Lactic Acid Shady (0.7-2.0) mmol/L Total Bilirubin 3.6 H (0.2-1.3) mg/dL AST 392 H (17-59) U/L ALT 217 H (4-49) U/L Alkaline Phosphatase 204 H (38-126) U/L Total Protein (6.3-8.2) g/dL Albumin (3.5-5.0) g/dL Urine Protein (Negative) Diabetes panel 10/22/24 10/22/24 Range/Units 00:02 08:38 Sodium 137 135 L (137-145) mmol/L Potassium 4.4 4.7 (3.5-5.1) mmol/L Chloride 99 100 (98-107) mmol/L Carbon Dioxide 26 25 (22-30) mmol/L BUN 23 H 18 (9-20) mg/dL Creatinine 1.19 1.00 (0.66-1.25) mg/dL Glucose 172 H 135 H (74-99) mg/dL Calcium 9.4 9.0 (8.4-10.2) mg/dL AST 261 H 392 H (17-59) U/L ALT 94 H 217 H (4-49) U/L Alkaline Phosphatase 194 H 204 H (38-126) U/L Total Protein 8.3 H 6.4 (6.3-8.2) g/dL Albumin 5.1 H 3.9 (3.5-5.0) g/dL Calcium panel 10/22/24 10/22/24 Range/Units 00:02 08:38 Calcium 9.4 9.0 (8.4-10.2) mg/dL Albumin 5.1 H 3.9 (3.5-5.0) g/dL Pituitary panel 10/22/24 10/22/24 Range/Units 00:02 08:38 Sodium 137 135 L (137-145) mmol/L Potassium 4.4 4.7 (3.5-5.1) mmol/L Chloride 99 100 (98-107) mmol/L Carbon Dioxide 26 25 (22-30) mmol/L BUN 23 H 18 (9-20) mg/dL Creatinine 1.19 1.00 (0.66-1.25) mg/dL Glucose 172 H 135 H (74-99) mg/dL Calcium 9.4 9.0 (8.4-10.2) mg/dL Adrenal panel 10/22/24 10/22/24 Range/Units 00:02 08:38 Sodium 137 135 L (137-145) mmol/L Potassium 4.4 4.7 (3.5-5.1) mmol/L Chloride 99 100 (98-107) mmol/L Carbon Dioxide 26 25 (22-30) mmol/L BUN 23 H 18 (9-20) mg/dL Creatinine 1.19 1.00 (0.66-1.25) mg/dL Glucose 172 H 135 H (74-99) mg/dL Calcium 9.4 9.0 (8.4-10.2) mg/dL Total Bilirubin 2.4 H 3.6 H (0.2-1.3) mg/dL AST 261 H 392 H (17-59) U/L ALT 94 H 217 H (4-49) U/L Alkaline Phosphatase 194 H 204 H (38-126) U/L Total Protein 8.3 H 6.4 (6.3-8.2) g/dL Albumin 5.1 H 3.9 (3.5-5.0) g/dL
--- NOTE | 2024-10-22 11:41 | XR ---
EXAMINATION TYPE: XR chest 1V portable DATE OF EXAM: 10/22/2024 CLINICAL INDICATION: Male, 73 years old with history of shortness of breath, TECHNIQUE: Single frontal view of the chest is obtained. COMPARISON: CTA chest February 06, 2022 FINDINGS: There is no focal air space opacity, pleural effusion, or pneumothorax seen. Cardiomegaly is redemons trated. The osseous structures are intact. IMPRESSION: Cardiomegaly without acute pulmonary process. [facility], , 10/22/2024 11:39 AM
[2024-10-22] MEDS: ATORVASTATIN 10 MG TAB PO SCH (12:01)
[2024-10-22] MEDS: atenoloL 50 MG TAB PO SCH (12:01)
[2024-10-22] MEDS: LOSARTAN 50 MG TAB PO SCH (12:01)
[2024-10-22] MEDS: ASPIRIN 81 MG PO SCH (12:02)
[2024-10-22] MEDS: NIFEdipine XL 90 MG TAB.ER.24 PO SCH (12:02)
--- NOTE | 2024-10-22 12:53 | CA ---
Transthoracic Echo Report Name: Prieto Fournier Age: 73 Gender: M : 1950 Exam Date: 10/22/2024 12:03 Exam Location: [facility] Ht (in): 72 Wt (lb): 207 Ordering Physician: Willa Braxton Attending/Referring Phys: [id number], [employer] Tri Ca, NICHELLE Procedure CPT: Indications: LV function, hypertension, cardiac clearance Cardiac Hx: Technical Quality: Good Contrast 1: Total Dose (mL): Contrast 2: Total Dose (mL): MEASUREMENTS (Male / Female) Normal Values 2D ECHO LV Diastolic Diameter PLAX 5.0 cm 4.2 - 5.9 / 3.9 - 5.3 cm LV Systolic Diameter PLAX 3.1 cm IVS Diastolic Thickness 1.5 cm 0.6 - 1.0 / 0.6 - 0.9 cm LVPW Diastolic Thickness 1.4 cm 0.6 - 1.0 / 0.6 - 0.9 cm LV Relative Wall Thickness 0.6 RV Internal Dim ED PLAX 3.5 cm LA Systolic Diameter LX 3.9 cm 3.0 - 4.0 / 2.7 - 3.8 cm LV Diastolic Volume MOD 4C 127.6 cm??? LV Systolic Volume MOD 4C 58.6 cm??? LV Ejection Fraction MOD 4C 54.1 % LV Cardiac Index MOD 4C 1850.1 cm???/min???m??? LV Diastolic Length 4C 9.3 cm LV Systolic Length 4C 7.7 cm LV Diastolic Volume MOD 2C 71.5 cm??? LV Systolic Volume MOD 2C 30.1 cm??? LV Ejection Fraction MOD 2C 57.9 % LV Cardiac Index MOD 2C 1109.5 cm???/min???m??? LV Diastolic Length 2C 9.0 cm LV Systolic Length 2C 7.4 cm M-MODE Aortic Root Diameter MM 3.8 cm DOPPLER AV Peak Velocity 178.2 cm/s AV Peak Gradient 12.7 mmHg AI Peak Velocity 293.1 cm/s AI Peak Gradient 34.4 mmHg AI Pressure Half Time 1026.6 ms Mitral E Point Velocity 88.1 cm/s Mitral A Point Velocity 94.2 cm/s Mitral E to A Ratio 0.9 MV Deceleration Time 323.3 ms MV E' Velocity 7.1 cm/s Mitral E to MV E' Ratio 12.5 TR Peak Velocity 278.9 cm/s TR Peak Gradient 31.1 mmHg Right Ventricular Systolic Press 41.1 mmHg FINDINGS Left Ventricle Left ventricular ejection fraction is estimated at 55-60 %. Left ventricular cavity size normal. Moderately increased septal wall thickness. Normal left ventricular wall motion. Right Ventricle Mild right ventricular dilatation. Mild pulmonary hypertension. Right Atrium Normal right atrial size. No right atrial thrombus or mass seen. Left Atrium Normal left atrial size. No left atrial thrombus or mass present. Mitral Valve Structurally normal mitral valve. No mitral stenosis, regurgitation or prolapse. Aortic Valve Trileaflet aortic valve. Thickened aortic valve without stenosis. Mild aortic regurgitation. Tricuspid Valve Structurally normal tricuspid valve. Mild tricuspid regurgitation. Pulmonic Valve Structurally normal pulmonic valve. Trace to mild pulmonic regurgitation. Pericardium No pericardial effusion. Aorta Mild aortic dilatation at the level of the sinuses of valsalva 38 mm CONCLUSIONS Indication hypertension LVH with preserved systolic function prominent posterior pericardial stripe Previewed by: Dr. Blayne Hearn MD (Electronically Signed) Final Date: 22 October 2024 12:52
--- NOTE | 2024-10-22 13:48 | P.CRDCN ---
History of Present Illness History of present illness: HISTORY OF PRESENT ILLNESS: This is a 73-year-old male with a past medical history significant for hypertension and hyperlipidemia. Patient does not follow with a river expedition guide. We have been asked to see the patient in consultation for cardiac clearance. Patient examined at the bedside in the emergency room. Patient presented to the hospital for chief complaint of abdominal pain and nausea. He is being evaluated by general surgery. Patient denies any chest pain or pressure. He de nies any shortness of breath. Patient states that he saw a river expedition guide in [place] years ago. He reports that he had an abnormal stress test but has never undergone cardiac catheterization. DIAGNOSTICS: - EKG reveals sinus mechanism with incomplete right bundle branch block. No signs of acute ischemia. - Laboratory data: WBC 10.8. Hemoglobin 14.7. Platelet count 186. Sodium 135. Potassium 4.7. BUN 18. Creatinine 1.0. AST 392. ALT 217. - Current home cardiac medications include aspirin 81 mg daily, atorvastatin 10 mg daily, losartan 100 mg daily, atenolol 50 mg daily, and Procardia XL 90 mg daily - Patient underwent Lexiscan stress test in March 2021 revealing decreased perfusion of the cardiac apex on stress images. Stress-induced ischemia not excluded. - Echocardiogram completed this admission reveals ejection fraction 55 to 60%, mild pulm hypertension, mild TR REVIEW OF SYSTEMS: At the time of my exam: CONSTITUTIONAL: Denies fever or chills. HEENT: Denies blurred vision, vision changes, or eye pain. Denies hemoptysis CARDIOVASCULAR: Denies chest pain. Denies orthopnea. Denies PND. Denies palpitations RESPIRATORY: Denies shortness of breath. GASTROINTESTINAL: Denies abdominal pain. Denies nausea or vomiting. HEMATOLOGIC: Denies bleeding disorders. GENITOURINARY: Denies any blood in urine. SKIN: Denies pruitis. Denies rash. PHYSICAL EXAM: VITAL SIGNS: Reviewed. GENERAL: Well-developed in no acute distress. HEENT: Head is normocephalic. Pupils are equal, round. Sclerae anicteric. Mucous membranes of the mouth are moist. Neck supple. No JVD or thyromegaly LUNGS: Respirations even and unlabored. Lungs essentially clear to auscultation bilaterally. HEART: Regular rate and rhythm. S1 and S2 heard. ABDOMEN: Soft. Nondistended. Nontender. EXTREMITIES: Normal range of motion. No clubbing or cyanosis. Peripheral pulses intact. No lower extremity edema NEUROLOGIC: Awake and alert. Oriented x 3. ASSESSMENT: Acute cholecystitis Transaminitis Hyperbilirubinemia Abnormal Lexiscan, March 2021, patient denies previous cardiac catheterization Lactic acidosis Hypertension Hyperlipidemia PLAN: 2D echo obtained and reviewed Resume home cardiac medications Check lipid panel and hemoglobin A1c General Surgery following. MRCP ordered. Recommend eventual outpatient ischemic evaluation There are no absolute contraindications for patient to proceed with surgical intervention if warranted from a cardiac standpoint Further recommendations pending patient course Nurse practitioner note has been reviewed by physician. Signing provider agrees with the documented findings, assessment, and plan of care documented by CEILING INSTALLER as a scribe. Past Medical History Past Medical History: Hyperlipidemia, Hypertension, Osteoarthritis (OA) Additional Past Medical History / Comment(s): gout, muscle and joint pain History of Any Multi-Drug Resistant Organisms: None Reported Past Surgical History: No Surgical Hx Reported Additional Past Surgical History / Comment(s): colonoscopy Past Anesthesia/Blood Transfusion Reactions: No Reported Reaction Past Psychological History: No Psychological Hx Reported Smoking Status: Never smoker Past Alcohol Use History: None Reported Past Drug Use History: None Reported Medications and Allergies Home Medications Medication Instructions Recorded Confirmed Type Aspirin [Adult Low Dose Aspirin EC] 81 mg PO DAILY 05/26/23 10/22/24 History Atorvastatin Calcium 10 mg PO DAILY 05/26/23 10/22/24 History Losartan Potassium 100 mg PO DAILY 05/26/23 10/22/24 History atenoloL [Tenormin] 50 mg PO DAILY 05/26/23 10/22/24 History Betamethasone Dipropionate 1 applic TOPICAL BID PRN 10/22/24 10/22/24 History [Betamethasone Dipropionate 0.05% Cream] NIFEdipine XL [Procardia Xl] 90 mg PO DAILY 10/22/24 10/22/24 History [place]-3/Dha/Epa/Fish Oil [Fish Oil 1 cap PO BID 10/22/24 10/22/24 History 1,000 mg Softgel] tadalafiL [Cialis] 5 mg PO DAILY PRN 10/22/24 10/22/24 History Allergies Allergy/AdvReac Type Severity Reaction Status Date / Time allopurinol Allergy Unknown Unknown Verified 10/22/24 06:50 Physical Exam Vitals: Vital Signs Temp Pulse Resp BP Pulse Ox 10/22/24 11:16 67 18 162/77 97 10/22/24 08:16 60 20 157/75 97 10/22/24 06:30 99.0 F 73 18 149/73 96 10/22/24 01:24 73 18 170/83 98 10/21/24 23:22 97.3 F L 82 17 168/72 97 Intake and Output 10/21/24 10/22/24 10/22/24 22:59 06:59 14:59 Other: Weight 93.894 kg Results 10/22/24 08:38 10/22/24 08:38 Cardiac Enzymes 10/22/24 10/22/24 10/22/24 Range/Units 00:02 00:02 08:38 AST 261 H 392 H (17-59) U/L Troponin I <0.012 (0.000-0.034) ng/mL CBC 10/22/24 10/22/24 Range/Units 00:02 08:38 WBC 13.4 H 10.8 H (3.8-10.6) k/uL RBC 5.58 4.90 (4.30-5.90) m/uL Hgb 16.5 14.7 (13.0-17.5) gm/dL Hct 50.6 44.6 (39.0-53.0) % Plt Count 237 196 (150-450) k/uL Comprehensive Metabolic Panel 10/22/24 10/22/24 Range/Units 00:02 08:38 Sodium 137 135 L (137-145) mmol/L Potassium 4.4 4.7 (3.5-5.1) mmol/L Chloride 99 100 (98-107) mmol/L Carbon Dioxide 26 25 (22-30) mmol/L BUN 23 H 18 (9-20) mg/dL Creatinine 1.19 1.00 (0.66-1.25) mg/dL Glucose 172 H 135 H (74-99) mg/dL Calcium 9.4 9.0 (8.4-10.2) mg/dL AST 261 H 392 H (17-59) U/L ALT 94 H 217 H (4-49) U/L Alkaline Phosphatase 194 H 204 H (38-126) U/L Total Protein 8.3 H 6.4 (6.3-8.2) g/dL Albumin 5.1 H 3.9 (3.5-5.0) g/dL Current Medications Generic Name Dose Route Start Last Admin Trade Name Freq PRN Reason Stop Dose Admin Acetaminophen 650 mg 10/22/24 09:17 Acetaminophen Tab 325 Mg Tab PO Q6HR PRN Fever and/ or Pain Hydromorphone HCl 0.5 mg 10/22/24 04:26 Hydromorphone 0.5 Mg/0.5 Ml Syringe IVP Q3HR PRN Moderate Pain (Scale 4 to 6) Lactated Ringer's 1,000 mls @ 130 mls/hr 10/22/24 04:30 10/22/24 11:23 Lactated Ringers IV Not Given .[id number] RAMON Piperacillin Sod/Tazobactam 100 mls @ 25 mls/hr 10/22/24 12:00 10/22/24 11:23 Sod 3.375 gm/ Sodium Chloride IVPB 25 mls/hr Q8H RAMON Administration Protocol Naloxone HCl 0.2 mg 10/22/24 04:26 Naloxone 0.4 Mg/Ml 1 Ml Vial IV Q2M PRN Opioid Reversal Intake and Output 10/21/24 10/22/24 10/22/24 22:59 06:59 14:59 Other: Weight 93.894 kg 10/22/24 08:38 10/22/24 08:38
[2024-10-22] MEDS ORDERED: LORazepam 1 MG TAB PO PRN (14:03)
[2024-10-22] MEDS ORDERED: hydrALAZINE HCL 20 MG/ML 1 ML VIAL IVP PRN (14:03)
[2024-10-22] MEDS: HEPARIN SODIUM,PORCINE 5,000 UNIT/ML 1 ML VIAL SQ SCH (14:39)
[2024-10-22] MEDS: PANTOPRAZOLE 40 MG/10 ML VIAL IVP SCH (14:39)
[2024-10-22 16:31] LABS: LDL Cholesterol,Calculated 64.9 mg/dL (0.0-131.0)
--- NOTE | 2024-10-22 16:59 | MR ---
EXAMINATION TYPE: MR MRCP DATE OF EXAM: 10/22/2024 4:01 PM COMPARISON: Ultrasound. CLINICAL INDICATION: Male, 73 years old with history of Abdominal pain, Elevated LFTs, gallstones; PH H, abdominal pain, elevated LFT's gallstones. rule out CBD stone. TECHNIQUE: Multi planar, T2-weighted imaging with and without fat saturation and chemical shift imag ing was performed of the abdomen. Then, heavily T2 weighted imaging (half-Fourier acquisition single- shot turbo spin-echo) was utilized in order to study the biliary system. Maximum intensity projectio n images were reconstructed from the original data of the biliary tree. 3D images were created on a [employer] work station. No Gadolinium given. FINDINGS: Lower Thorax: No evidence for acute process. MRCP: * The intrahepatic ducts have a normal appearance. * The extrahepatic ducts have a normal appearance. * The common hepatic duct measures 3 mm in size. * The common bile duct at the level of the pancreatic head measures 5 mm in size. * The pancreatic duct is normal. * The gallbladder appears distended with multiple gallstones layering dependently. The gallbladder w all is thickened with surrounding edema measuring up to 4 mm. Abdomen: Liver: No evidence for hepatic steatosis or cirrhosis. Pancreas: No ductal dilation. No evidence for solid mass. Spleen: Normal for size. Adrenal glands: Unremarkable. Kidneys: No evidence for obstructive uropathy. No suspicious renal masses. Few tiny simple appearing subcentimeter high T2 signal cysts measuring 7 mm on the right 7 mm in the left Stomach and Bowel: No evidence for bowel wall thickening or evidence for obstruction. Retroperitoneum/Peritoneum: No evidence of pneumoperitoneum or free fluid. Vasculature: No aortic aneurysm. Abnormal appearance of the left portal vein 001 image 48. Musculoske letal: The osseous structures appear intact. Lymph Nodes: No gross evidence for lymphadenopathy. Abdominal wall: Unremarkable. IMPRESSION: 1. Findings supporting acute cholecystitis with gallbladder wall thickening and cholelithiasis. No c ommon duct stone visualized. Consider HIDA scan to rule out cystic duct obstruction. 2. Loss of signal void in the left portal vein concerning for thrombus/ultrasound interrogation of t he left portal vein near its origin with the right portal vein recommended. 3. No evidence to suggest ductal stricture, choledocholithiasis, or biliary ductal dilatation. 4. Findings communicated to Jennifer Moore 10/22/2024 4:[address] Steven Collazo. [facility], , 10/22/2024 4:57 PM
[2024-10-22] MEDS ORDERED: HEPARIN SODIUM 1,000 UN/ML (10ML VL) IV PRN (17:37)
[2024-10-22 18:23] LABS: INR 1.4 (<1.2); Prothrombin Time 14.7 sec (10.0-12.5)
--- NOTE | 2024-10-22 18:40 | US ---
EXAMINATION TYPE: US abdomen limited DATE OF EXAM: 10/22/2024 COMPARISON: US & MRI same day CLINICAL INDICATION: Male, 73 years old with history of Eval Portal vein thrombosis; Dilated portal vein at 1.8cm, visualized portions appear patent with hepatopedal flow, limited visual ization of left portal vein due to overlying bowel gas IMPRESSION: 1. No changes to suggest acute portal vein thrombosis. 2. There is some portal vein dilatation present. [facility], , 10/22/2024 6:38 PM
[2024-10-22] MEDS: HEPARIN SODIUM 1,000 UN/ML (10ML VL) IV ONE (20:01)
[2024-10-22] MEDS: HEPARIN SOD,PORK IN 0.45% NACL 25,000 UNIT in 0.45% NACL 1 250ML.BAG IV SCH (20:13)
--- NOTE | 2024-10-23 00:25 | CONS ---
CONSULTATION REASON FOR CONSULTATION: Advice regarding hypertension, hyperlipidemia, and other medical issues, requested by Surgery. HISTORY OF PRESENT ILLNESS: This is a 73-year-old gentleman with a past medical history of hypertension hyperlipidemia, history of DJD, history of gout, who presented to [facility] with complaints of abdominal pain, mainly in the bilateral upper quadrants. The patient had features of acute cholecystitis. The patient is evaluated by Surgery and Cardiology. LFTs are mildly elevated. The MRCP has been recommended to rule out the possibility of choledocholithiasis. Chest x-ray showed some mild cardiomegaly, otherwise 2D echo showed normal ejection fraction with hypertension. PAST MEDICAL HISTORY: Reviewed and includes hypertension, hyperlipidemia, DJD. Rest of the history and chart is also reviewed. HOME MEDICATIONS: Reviewed and include nifedipine. Dose and rest of medications reviewed. ALLERGIES: Allopurinol. FAMILY HISTORY: No history of heart disease or strokes in the family. SOCIAL HISTORY: No history of smoking or alcohol. REVIEW OF SYSTEMS: Fourteen-point review of systems is negative except as mentioned earlier. PHYSICAL EXAMINATION: VITAL SIGNS: Pulse is 67, blood pressure 162/77, respirations 18. HEENT: Conjunctivae normal. NECK: No JVD. CARDIOVASCULAR: S1, S2. RESPIRATIONS: Breath sounds diminished at the bases. Few scattered rhonchi. ABDOMEN: Soft, mild diffuse tenderness in the right upper quadrant. LEGS: No edema. SKIN: No rash. NERVOUS SYSTEM: No focal deficits. LABORATORY DATA: Noted. ASSESSMENT: 1. Acute cholecystitis, cholelithiasis with possible sepsis present on admission. 2. Severe abdominal pain. 3. Rule out choledocholithiasis. 4. Elevated lactic acid. 5. Elevated WBC. 6. Hypertension. 7. Hyperlipidemia. 8. History of degenerative joint disease. 9. History of gout. 10.Multiple complex medical issues. RECOMMENDATIONS AND DISCUSSION: This is a 73-year-old gentleman, who presented with multiple complex medical issues. We will monitor the patient closely. Continue with the broad-spectrum IV antibiotics. MRCP has been ordered by Surgery. Closely follow with Cardiology and Surgery. Otherwise, the patient is medically stable for any possible surgery. We will continue to monitor. See orders for details. We will follow the cultures. DVT prophylaxis. Monitor blood pressure closely. Further recommendations to follow. MMODL / IJN: [id number] /
[2024-10-23 00:44] LABS: Basophils % (A) 1 %; Eosinophils # (A) 0.5 k/uL (0-0.7); Eosinophils % (A) 7 %; HGB 15.2 gm/dL (13.0-17.5); Lymphocytes # (A) 1.2 k/uL (1.0-4.8); Lymphocytes % (A) 17 %; MCH 29.5 pg (25.0-35.0); MCHC 32.4 g/dL (31.0-37.0); Mean Platelet Volume 7.1; Monocytes # (A) 0.4 k/uL (0-1.0); Monocytes % (A) 6 %; Neutrophils # (A) 4.9 k/uL (1.3-7.7); Neutrophils % (A) 69 %; Platelet Count 188 k/uL (150-450); RBC 5.16 m/uL (4.30-5.90); RDW 13.4 % (11.5-15.5); WBC 7.2 k/uL (3.8-10.6)
[2024-10-23 01:18] LABS: ALT 204 U/L (4-49); AST 221 U/L (17-59); African American GFR (CKD) 85 (>60 ml/min/1.73 sqM); Albumin/Globulin Ratio 1.6; Alkaline Phosphatase 258 U/L (38-126); Anion Gap 11 mmol/L; Blood Urea Nitrogen 13 mg/dL (9-20); Calcium 9.4 mg/dL (8.4-10.2); Carbon Dioxide 22 mmol/L (22-30); Chloride 103 mmol/L (98-107); Globulin 2.5 g/dL; Glucose 98 mg/dL (74-99); Non-African American GFR(CKD) 74 (>60 ml/min/1.73 sqM); Potassium 3.7 mmol/L (3.5-5.1); Sodium 136 mmol/L (137-145); Total Bilirubin 5.9 mg/dL (0.2-1.3); Total Protein 6.5 g/dL (6.3-8.2)
--- NOTE | 2024-10-23 11:52 | P.PN ---
Subjective Progress Note Date: 10/23/24 Patient seen and examined at bedside. States he is feeling much better. Denies abdominal pain. Denies nausea or vomiting. Did undergo MRCP and repeat abdominal ultrasound yesterday. Objective - Vital Signs Vital signs: Vital Signs Temp 97.7 F 10/23/24 07:09 Pulse 51 L 10/23/24 07:09 Resp 16 10/23/24 07:09 BP 136/70 10/23/24 07:09 Pulse Ox 96 10/23/24 07:09 FiO2 Intake & Output 10/22/24 10/23/24 10/23/24 18:59 06:59 18:59 Intake Total 169.856 Balance 169.856 Weight 93.894 kg Intake: Intake, IV Titration 169.856 Amount Heparin Sod,Pork in 0.45% 169.856 NaCl 25,000 unit In 0.45 % NaCl 1 250ml.bag @ 18 UNITS/KG/HR 16.901 mls/hr IV .[id number] [facility] Rx#: [id number] Other: Voiding Method Toilet Urinal # Voids 1 - Constitutional General appearance: Present: cooperative, no acute distress - Respiratory Details: No difficulty with respiration - Gastrointestinal Gastrointestinal Comment(s): Soft, nontender, nondistended, no rebound, no guarding - Psychiatric Psychiatric: Present: A&O x's 3 - Labs CBC & Chem 7: 10/23/24 00:00 10/23/24 00:00 Labs: Abnormal Lab Results - Last 24 Hours (Table) 10/22/24 10/22/24 10/22/24 Range/Units 08:38 08:38 18:03 PT 14.7 H (10.0-12.5) sec INR 1.4 H (<1.2) APTT (22.0-30.0) sec Sodium (137-145) mmol/L Hemoglobin A1c 6.2 H (<=6.0) % Total Bilirubin (0.2-1.3) mg/dL AST (17-59) U/L ALT (4-49) U/L Alkaline Phosphatase (38-126) U/L Triglycerides 158.00 H (0.00-149.00) mg/dL HDL Cholesterol 34.50 L (40.00-60.00) mg/dL 10/22/24 10/23/24 10/23/24 Range/Units 23:46 00:00 05:30 PT (10.0-12.5) sec INR (<1.2) APTT 66.0 H 89.0 H (22.0-30.0) sec Sodium 136 L (137-145) mmol/L Hemoglobin A1c (<=6.0) % Total Bilirubin 5.9 H (0.2-1.3) mg/dL AST 221 H (17-59) U/L ALT 204 H (4-49) U/L Alkaline Phosphatase 258 H (38-126) U/L Triglycerides (0.00-149.00) mg/dL HDL Cholesterol (40.00-60.00) mg/dL Assessment and Plan Plan: 73-year-old male with concern for acute cholecystitis. MRCP completed and reviewed with concerning finding for possible portal vein thrombosis. On review yesterday, patient was urgently started on heparin drip with dedicated ultrasound performed for further evaluation. Repeat ultrasound showed no evidence of portal vein thrombosis and heparin drip was discontinued this morning. MRCP also showing no evidence of choledocholithiasis, however total bilirubin is continued to have elevation. We will plan for cholecystectomy in AM. Patient can have diet today and n.p.o. after midnight. Continue IV antibiotics. Case was discussed in depth with patient and daughter at bedside and they are agreeable with plan. All questions answered
--- NOTE | 2024-10-23 16:40 | P.PN ---
Subjective Progress Note Date: 10/23/24 HISTORY OF PRESENT ILLNESS: This is a 73-year-old male with a past medical history significant for hype rtension and hyperlipidemia. Patient does not follow with a practice representative. We have been asked to see the patient in consultation for cardiac clearance. Patient examined at the bedside in the emergency room. Patient presented to the hospital for chief complaint of abdominal pain and nausea. He is being evaluated by general surgery. Patient denies any chest pain or pressure. He denies any shortness of breath. Patient states that he saw a practice representative in [place] years ago. He reports that he had an abnormal stress test but has never undergone cardiac catheterization. DIAGNOSTICS: - EKG reveals sinus mechanism with incomplete right bundle branch block. No signs of acute ischemia. - Laboratory data: WBC 10.8. Hemoglobin 14.7. Platelet count 186. Sodium 135. Potassium 4.7. BUN 18. Creatinine 1.0. AST 392. ALT 217. - Current home cardiac medications include aspirin 81 mg daily, atorvastatin 10 mg daily, losartan 100 mg daily, atenolol 50 mg daily, and Procardia XL 90 mg daily - Patient underwent Lexiscan stress test in March 2021 revealing decreased perfusion of the cardiac apex on stress images. Stress-induced ischemia not excluded. - Echocardiogram completed this admission reveals ejection fraction 55 to 60%, mild pulm hypertension, mild TR REVIEW OF SYSTEMS: At the time of my exam: CONSTITUTIONAL: Denies fever or chills. HEENT: Denies blurred vision, vision changes, or eye pain. Denies hemoptysis CARDIOVASCULAR: Denies chest pain. Denies orthopnea. Denies PND. Denies palpitations RESPIRATORY: Denies shortness of breath. GASTROINTESTINAL: Denies abdominal pain. Denies nausea or vomiting. HEMATOLOGIC: Denies bleeding disorders. GENITOURINARY: Denies any blood in urine. SKIN: Denies pruitis. Denies rash. PHYSICAL EXAM: VITAL SIGNS: Reviewed. GENERAL: Well-developed in no acute distress. HEENT: Head is normocephalic. Pupils are equal, round. Sclerae anicteric. Mucous membranes of the mouth are moist. Neck supple. No JVD or thyromegaly LUNGS: Respirations even and unlabored. Lungs essentially clear to auscultation bilaterally. HEART: Regular rate and rhythm. S1 and S2 heard. ABDOMEN: Soft. Nondistended. Nontender. EXTREMITIES: Normal range of motion. No clubbing or cyanosis. Peripheral pulses intact. No lower extremity edema NEUROLOGIC: Awake and alert. Oriented x 3. ASSESSMENT: Acute cholecystitis Transaminitis Hyperbilirubinemia Abnormal Justyniscan, March 2021, patient denies previous cardiac catheterization Lactic acidosis Hypertension Hyperlipidemia Prediabetes A1c 6.2 Echo during this hospital admission showed LVEF 55%, no major valvular dysfunction. PLAN: Continue aspirin 81 mg, Lipitor 10 mg, reduce atenolol to 25 mg daily because of low resting heart rate Continue losartan 100 mg, nifedipine XL 90 mg daily Patient is cleared to undergo gallbladder surgery from cardiovascular standpoint. He is at moderate risk for a low to moderate risk procedure. At this time cardiology team will sign off Postoperatively if patient has hemodynamic issues or any cardiac issues, feel free to contact us and reconsult us. Recommend outpatient follow-up with cardiology Objective - Vital Signs Vital signs: Vital Signs Temp 97.9 F 10/23/24 11:51 Pulse 56 L 10/23/24 11:51 Resp 16 10/23/24 11:51 BP 142/70 10/23/24 11:51 Pulse Ox 95 10/23/24 11:51 FiO2 Intake & Output 10/22/24 10/23/24 10/23/24 18:59 06:59 18:59 Intake Total 274.978 9688 Balance 044.788 5419 Weight 93.894 kg Intake: Intake, IV Titration 169.856 Amount Heparin Sod,Pork in 0.45% 169.856 NaCl 25,000 unit In 0.45 % NaCl 1 250ml.bag @ 18 UNITS/KG/HR 16.901 mls/hr IV .[id number] [facility] Rx#: [id number] Oral 1640 Other: Voiding Method Toilet Toilet Urinal Urinal # Voids 1 5 - Labs CBC & Chem 7: 10/23/24 00:00 10/23/24 00:00 Labs: Abnormal Lab Results - Last 24 Hours (Table) 10/22/24 10/22/24 10/23/24 Range/Units 18:03 23:46 00:00 PT 14.7 H (10.0-12.5) sec INR 1.4 H (<1.2) APTT 66.0 H (22.0-30.0) sec Sodium 136 L (137-145) mmol/L Total Bilirubin 5.9 H (0.2-1.3) mg/dL AST 221 H (17-59) U/L ALT 204 H (4-49) U/L Alkaline Phosphatase 258 H (38-126) U/L 10/23/24 10/23/24 Range/Units 05:30 11:53 PT (10.0-12.5) sec INR (<1.2) APTT 89.0 H 39.5 H (22.0-30.0) sec Sodium (137-145) mmol/L Total Bilirubin (0.2-1.3) mg/dL AST (17-59) U/L ALT (4-49) U/L Alkaline Phosphatase (38-126) U/L
--- NOTE | 2024-10-23 23:50 | PN ---
PROGRESS NOTE DATE OF SERVICE: 10/23/2024 SUBJECTIVE: This is a 73-year-old gentleman admitted with a possible acute cholelithiasis and cholecystitis, who is being closely monitored. His MRCP did not show any CBD stones. No chest pain, no palpitation. PHYSICAL EXAMINATION: VITAL SIGNS: Pulse is 56, blood pressure 142/75, respirations 16. CHEST: Clear to auscultation. CARDIOVASCULAR: S1, S2. ABDOMEN: Soft, mild diffuse tenderness. LABORATORY DATA: Noted. ASSESSMENT: 1. Acute cholecystitis with cholelithiasis with possible sepsis present on admission. 2. Severe abdominal pain. 3. No evidence of choledocholithiasis on the MRI. 4. Multiple complex medical issues. RECOMMENDATIONS: Recommended to continue with current management, continue with symptomatic treatment. Otherwise, continue with the antibiotics. Repeat labs in the morning. Closely follow with Surgery. Guarded prognosis. DVT prophylaxis. Further recommendations to follow. Cardiology is also following the patient closely. MMODL / IJN: [id number] /
[2024-10-24] MEDS ORDERED: ATORVASTATIN 10 MG TAB PO SCH (09:00)
[2024-10-24] MEDS: IV FLUID CONTINUATION 1,000 ML IV ONE (09:36)
[2024-10-24] MEDS: LIDOCAINE 2%-EPI 1:100,000 20 ML VIAL SQ ONE ×2 (10:10→10:40)
[2024-10-24] MEDS ORDERED: SUCCINYLCHOLINE CHLORIDE 200 MG/10 ML VIAL IV ONE (10:24)
[2024-10-24] MEDS ORDERED: LIDOCAINE 1% INJ 10MG/ML (20 ML MDV) ONE (10:24)
[2024-10-24] MEDS ORDERED: fentaNYL (PF) 50 MCG/ML 2 ML AMP ONE (10:24)
[2024-10-24] MEDS ORDERED: NEOSTIGMINE 1 MG/ML 10 ML VIAL ONE (10:24)
[2024-10-24] MEDS ORDERED: HEPARIN SODIUM,PORCINE 5,000 UNIT/ML 1 ML VIAL ONE (10:24)
[2024-10-24] MEDS ORDERED: ROCURONIUM 10 MG/ML (5 ML VIAL) IV ONE (10:24)
[2024-10-24] MEDS ORDERED: ePHEDrine 50 MG/ML 1 ML VIAL ONE (10:24)
[2024-10-24] MEDS ORDERED: GLYCOPYRROLATE 0.2 MG/ML 2 ML VIAL ONE (10:24)
[2024-10-24] MEDS ORDERED: MIDAZOLAM 2 MG/2 ML VIAL ONE (10:24)
[2024-10-24] MEDS ORDERED: PROPOFOL 10 MG/ML 20 ML VIAL IV ONE (10:24)
[2024-10-24 11:09] LABS: Basophils # (A) 0.06 X 10*3/uL (0.00-0.10); Basophils % (A) 0.9 %; Eosinophils # (A) 0.39 X 10*3/uL (0.04-0.35); Eosinophils % (A) 6.1 %; HCT 46.4 % (39.6-50.0); HGB 15.2 g/dL (13.0-17.0); Lymphocytes # (A) 1.37 X 10*3/uL (0.90-5.00); Lymphocytes % (A) 21.3 %; MCH 29.6 pg (27.0-32.0); MCHC 32.8 g/dL (32.0-37.0); MCV 90.3 FL (80.0-97.0); Mean Platelet Volume 9.5 FL (9.5-12.2); Monocytes # (A) 0.44 X 10*3/uL (0.20-1.00); Monocytes % (A) 6.8 %; NRBC Per 100 WBC 0 X 10*3/uL (0.00-0.01); Neutrophils # (A) 4.14 X 10*3/uL (1.80-7.70); Neutrophils % (A) 64.4 %; Platelet Count 200 X 10*3/uL (140-440); RBC 5.14 X 10*6/uL (4.40-5.60); WBC 6.43 X 10*3/uL (4.50-10.00)
[2024-10-24 11:15] LABS: ALT 119 U/L (10-49); AST 71 U/L (14-35); Albumin 3.9 g/dL (3.8-4.9); Albumin/Globulin Ratio 1.77 Ratio (1.60-3.17); Alkaline Phosphatase 246 U/L (41-126); BUN/Creat Ratio 9.75 Ratio (12.00-20.00); Blood Urea Nitrogen 11.7 mg/dL (9.0-27.0); Calcium 8.8 mg/dL (8.7-10.3); Carbon Dioxide 21.6 mmol/L (21.6-31.8); Chloride 107 mmol/L (96-109); Globulin 2.2 g/dL (1.6-3.3); Glucose 98 mg/dL (70-110); Potassium 4.1 mmol/L (3.5-5.5); Sodium 144 mmol/L (135-145); Total Bilirubin 1.5 mg/dL (0.3-1.2); Total Protein 6.1 g/dL (6.2-8.2)
--- NOTE | 2024-10-24 11:28 | P.OP ---
Date of Procedure: 10/24/24 Preoperative Diagnosis: Acute cholecystitis Postoperative Diagnosis: Acute cholecystitis Procedure(s) Performed: Robotic cholecystectomy Anesthesia: ARMAAN Surgeon: Armen Laughlin Pathology: other (Gallbladder and contents) Condition: stable Disposition: floor Indications for Procedure: 73-year-old male presented to the emergency department with complaint of severe epigastric and right upper quadrant pain. On workup he was found to have acute cholecystitis. Further workup was performed secondary to elevated bilirubin for choledocholithiasis, however he has no evidence of choledocholithiasis. Plan is for robotic cholecystectomy. Further recommendations to be made after procedure. Risks, benefits and alternatives including risks of bleeding, infection and biliary injury were discussed with the patient. Operative Findings: Significantly distended and thickened gallbladder Description of Procedure: Patient was brought to the operating suite and placed in supine position on the operating table. Sedation was provided by anesthesia and the patient underwent endotracheal intubation. The patient was then prepped and draped in regular sterile fashion. An infraumbilical incision was made and dissection was carried to the fascia. The fascia was incised and an 8 mm trocar was placed. Pneumoperitoneum was achieved. The patient was then placed in appropriate position. 2 additional 8 mm trocars were placed in the right upper quadrant and 1 in the left upper quadrant. Robot was then docked. The gallbladder was then grasped and retracted superiorly and laterally. The gallbladder appeared quite distended and thickened. Dissection was carried along the infundibulum towards the cystic duct and the cystic duct was skeletonized. The cystic artery was similarly skeletonized and critical view was obtained. ICG was used to confirm anatomy. 2 clips were placed proximally on the cystic duct and 1 was placed distally and the cystic duct was ligated. Similarly, 2 clips were placed proximally on the cystic artery and 1 was placed distally and the cystic artery was ligated. Cautery was then used to dissect the gallbladder off of the gallbladder fossa. The gallbladder was then placed in an Endo Catch bag and removed from the abdomen from the infraumbilical incision site. Irrigation was placed in the right upper quadrant and suctioned. Hemostasis was noted to be maintained. No bile leakage was noted. The infraumbilical fascial incision was closed under direct visualization using an 0 Vicryl suture and Gerardo-Kassie device. Pneumoperitoneum was released. All ports removed from the abdomen. All port sites were closed with 4-0 Vicryl subcuticular suture. Sterile dressing was applied. The patient was taken to postanesthesia care unit in stable condition. Sponge and instrument count correct x 2.
[2024-10-24] MEDS: LACTATED RINGERS 1,000 ML IV ONE (11:30)
[2024-10-24] MEDS: HYDROmorphone 0.5 MG/0.5 ML SYRINGE IVP PRN (11:47)
[2024-10-24] MEDS: ATORVASTATIN 10 MG TAB PO SCH (14:00)
[2024-10-24] MEDS: atenoloL 25 MG TAB PO SCH (14:00)
[2024-10-24] MEDS: SODIUM CHLORIDE 0.9% 1,000 ML IV SCH (16:40)
[2024-10-24] MEDS: ONDANSETRON 4 MG/2 ML VIAL IVP STA (17:45)
--- NOTE | 2024-10-25 05:53 | PN ---
PROGRESS NOTE DATE OF SERVICE: 10/24/2024 SUBJECTIVE: This is a 73-year-old gentleman admitted with acute cholecystitis and cholelithiasis, underwent robotic cholecystectomy by Surgery. No chest pain. No palpitations. No fever. OBJECTIVE: VITAL SIGNS: Pulse is 61, blood pressure 140/73, respirations 16. CHEST: A few scattered rhonchi. ABDOMEN: Soft, status post surgery. LABORATORY DATA: Noted. ASSESSMENT: 1. Acute cholecystitis, status post robotic cholecystectomy with possible sepsis present on admission. 2. Severe abdominal pain. 3. No evidence of choledocholithiasis on the MRI. 4. Multiple complex medical issues. RECOMMENDATIONS: Recommended to continue with current management and continue with symptomatic treatment. Otherwise, continue with antibiotics. Can follow up labs. Closely follow with Surgery. Further recommendations to follow. MMODL / IJN: [id number] /
[2024-10-25 07:36] VITALS: RESP 20
[2024-10-25 08:19] LABS: Basophils # (A) 0.03 X 10*3/uL (0.00-0.10); Basophils % (A) 0.4 %; Eosinophils % (A) 1.3 %; HCT 45.9 % (39.6-50.0); HGB 15.3 g/dL (13.0-17.0); Lymphocytes # (A) 0.98 X 10*3/uL (0.90-5.00); Lymphocytes % (A) 12.3 %; MCH 30.1 pg (27.0-32.0); MCHC 33.3 g/dL (32.0-37.0); MCV 90.2 FL (80.0-97.0); Mean Platelet Volume 9.2 FL (9.5-12.2); Monocytes # (A) 0.48 X 10*3/uL (0.20-1.00); NRBC Per 100 WBC 0 X 10*3/uL (0.00-0.01); Neutrophils # (A) 6.39 X 10*3/uL (1.80-7.70); Neutrophils % (A) 79.7 %; Platelet Count 213 X 10*3/uL (140-440); RBC 5.09 X 10*6/uL (4.40-5.60); RDW 13.1 % (11.5-14.5)
[2024-10-25 08:25] LABS: ALT 93 U/L (10-49); AST 54 U/L (14-35); Albumin 4.1 g/dL (3.8-4.9); Albumin/Globulin Ratio 1.71 Ratio (1.60-3.17); Alkaline Phosphatase 221 U/L (41-126); BUN/Creat Ratio 9.67 Ratio (12.00-20.00); Blood Urea Nitrogen 11.6 mg/dL (9.0-27.0); Calcium 8.5 mg/dL (8.7-10.3); Chloride 100 mmol/L (96-109); Globulin 2.4 g/dL (1.6-3.3); Glucose 139 mg/dL (70-110); Potassium 3.8 mmol/L (3.5-5.5); Sodium 136 mmol/L (135-145); Total Bilirubin 1.1 mg/dL (0.3-1.2); Total Protein 6.5 g/dL (6.2-8.2)
[2024-10-25] MEDS: HYDROcodone/APAP 5-325MG 1 EACH TAB PO PRN (09:13)
--- NOTE | 2024-10-25 12:10 | P.DS ---
Providers Date of admission: 10/22/24 04:27 Expected date of discharge: 10/25/24 Attending physician: Jose Manuel Durant DO Consults: 10/22/24 10:10 Consult Physician Routine Consulting Provider: Evelyn Jaquez Consult Reason/Comments: medical management Do you want consulting provider notified?: Yes Primary care physician: Kate Yu, [facility] Hospital Course: Discharge diagnosis 1. Acute cholecystitis Hospital course This is a 73-year-old male who presented with severe epigastric and right upper quadrant abdominal pain. He was found to have evidence of acute cholecystitis. Patient had MRCP completed due to elevated total bilirubin and there was no evidence of choledocholithiasis. He is status post robotic cholecystectomy. Patient tolerated surgery well. His pain is controlled. He is tolerating diet. He has been up and ambulating. He is having flatus. He is urinating. Afebrile. He is stable for discharge. Please refer to chart for any further details. Physician Histology Specialist note has been reviewed by physician. Signing provider agrees with the documented findings, assessment, and plan of care. Attestation Patient seen and examined at bedside. Presented with abdominal pain and found to have acute cholecystitis. Patient had significantly elevated bilirubin that did decrease during his admission. MRCP revealed no choledocholithiasis. He did not undergo robotic cholecystectomy. Postoperatively he did well. Initially he had some urinary retention that did resolve. He is surgically stable for discharge with outpatient follow-up. Wound care and activity instructions provided. Armen Laughlin DO Patient Condition at Discharge: Stable Plan - Discharge Summary Discharge Rx Participant: Yes New Discharge Prescriptions: New Docusate [Colace] 100 mg PO BID #30 capsule HYDROcodone/APAP 5-325MG [[place] 5-325] 1 tab PO Q6HR PRN 3 Days #12 tab PRN Reason: Pain Amoxic-Pot Clav 875-125Mg [Augmentin 875-125] 1 tab PO Q12HR 3 Days #6 tab Tamsulosin HCl [Flomax] 0.4 mg PO DAILY 7 Days #7 capsule atenoloL [Tenormin] 25 mg PO DAILY #30 tab Continue Losartan Potassium 100 mg PO DAILY Atorvastatin Calcium 10 mg PO DAILY NIFEdipine XL [Procardia XL] 90 mg PO DAILY Aspirin [Adult Low Dose Aspirin EC] 81 mg PO DAILY tadalafiL [Cialis] 5 mg PO DAILY PRN PRN Reason: E.D. & Urinary Problems [place]-3/Dha/Epa/Fish Oil [Fish Oil 1,000 mg Softgel] 1 cap PO BID Betamethasone Dipropionate [Betamethasone Dipropionate 0.05% Cream] 1 applic TOPICAL BID PRN PRN Reason: Itching Discontinued atenoloL [Tenormin] 50 mg PO DAILY Discharge Medication List Aspirin [Adult Low Dose Aspirin EC] 81 mg PO DAILY 05/26/23 [History] Atorvastatin Calcium 10 mg PO DAILY 05/26/23 [History] Losartan Potassium 100 mg PO DAILY 05/26/23 [History] Betamethasone Dipropionate [Betamethasone Dipropionate 0.05% Cream] 1 applic TOPICAL BID PRN 10/22/24 [History] NIFEdipine XL [Procardia XL] 90 mg PO DAILY 10/22/24 [History] [place]-3/Dha/Epa/Fish Oil [Fish Oil 1,000 mg Softgel] 1 cap PO BID 10/22/24 [History] tadalafiL [Cialis] 5 mg PO DAILY PRN 10/22/24 [History] Amoxic-Pot Clav 875-125Mg [Augmentin 875-125] 1 tab PO Q12HR 3 Days #6 tab 10/25/24 [Rx] Docusate [Colace] 100 mg PO BID #30 capsule 10/25/24 [Rx] HYDROcodone/APAP 5-325MG [[place] 5-325] 1 tab PO Q6HR PRN 3 Days #12 tab 10/25/24 [Rx] Tamsulosin HCl [Flomax] 0.4 mg PO DAILY 7 Days #7 capsule 10/25/24 [Rx] atenoloL [Tenormin] 25 mg PO DAILY #30 tab 10/25/24 [Rx] Follow up Appointment(s)/Referral(s): Albert Gramajo MD [Medical Doctor] - 11/04/24 3:15 pm Toni Pagan [STAFF PHYSICIAN] - 1 Week (make an appt with hematology) Tamica Mason MD [REFERRING] - 1 Week (call and make an appt with Dr. Lainez urology) Armen Laughlin DO [Doctor of Osteopathic Medicine] - 11/02/24 10:45 am Patient Instructions/Handouts: Atenolol (By mouth), Hydrocodone/Acetaminophen (By mouth), Amoxicillin/Clavulanate Potassium (By mouth), Laxative, Stool S ofteners (By mouth), Tamsulosin (By mouth), Cholecystitis (GEN) Activity/Diet/Wound Care/Special Instructions: No driving while taking [place] No lifting over 10 pounds You may shower. No soaking or tub baths for 2 weeks Very light activity until you are reevaluated at your follow up appointment with your surgeon Continue taking medications as prescribed Follow-up with urology outpatient Continue antibiotics until finished Discharge Disposition: HOME SELF-CARE
[2024-10-25 12:47] VITALS: BP 170/83; PULSE 56; TEMP 97.6
--- NOTE | 2024-10-26 09:12 | P.PN ---
Subjective Progress Note Date: 10/25/24 This is a very pleasant 73-year-old male who was recently admitted under surgery services for cholecystitis and is status post laparoscopic cholecystectomy with general surgery being closely monitored. Patient has been cleared for discharge per general surgery services. Patient was noted to have some small blood clots noted in the urine post Schultz catheter removal and patient is voiding. Will initiate Flomax and also recommend outpatient follow-up. Patient reports he has followed with numerous urologists for elevated PSA and most recent he reports was over 8. Patient follows with Dr. Patel out of the [place] area and is looking for providers that can take his insurance as well as his location. Patient did get referred to providers out in [place]. Patient will need outpatient follow-up with urology on discharge. Patient is tolerating diet with no reported nausea or vomiting has some mild abdominal discomfort although nothing significant he reports. Patient is wanting to go home. Patient follows with Dr. Rodriguez outpatient in [place] and has been instructed to follow-up this week on discharge. Review of systems: Constitutional: No reports of fatigue, fever, or chills Cardiovascular: No reports of chest pain or palpitations Respiratory: No reports of shortness of breath or cough GI: No reports of nausea, no reports of vomiting, reports passing gas with no bowel movement as of yet, minimal abdominal discomfort : No reports of dysuria or retention, reports passing some small blood clots in the urine post Schultz removal and is voiding Neurovascular: No reports of generalized weakness All medications have been reviewed PHYSICAL EXAMINATION: GENERAL: The patient is alert and oriented x4, Well developed, well nourished. Elderly appearing HEENT: Pupils are round and equally reacting to light. EOMI. no scleral icterus. No conjunctival pallor. Normocephalic, atraumatic. No pharyngeal erythema. No thyromegaly. CARDIOVASCULAR: S1 and S2 muffled PULMONARY: diminished breath sounds bilaterally with no wheezing or rhonchi noted. ABDOMEN: soft. Nontender on exam. Thin. non-distended, normoactive bowel sounds. No palpable organomegaly. MUSCULOSKELETAL: No joint swelling or deformity. EXTREMITIES: No cyanosis, clubbing, or pedal edema. NEUROLOGICAL: Gross neurological examination did not reveal any focal deficits. SKIN: No rashes. Assessment: Acute cholecystitis, status post robotic cholecystectomy with concerns of sepsis, present on admission Leukocytosis, on admission secondary to above, improved and resolved Severe abdominal pain secondary to above No evidence of choledocholithiasis on MRI Elevated PSA previously, needs further follow-up with urology outpatient Hypertension history Hyperlipidemia History of osteoarthritis History of gout GI prophylaxis DVT prophylaxis Full code Plan: Recommend to continue with current medications and management per general surgery services. Patient is status post robotic assisted cholecystectomy Patient had MRCP with no evidence of choledocholithiasis Patient evaluated by cardiology recommend to continue with current medications and outpatient follow-up Patient reports noting some small blood clots in the urine post Schultz catheter removal. Will continue Flomax for 1 week and also provide resources and instruct patient to follow-up with urology outpatient. Patient reports he did have an elevated PSA most recently and has been following outpatient although difficult given traveling and distance along with excepting of insurance. Resources provided on discharge for urologist Patient is medically stable once cleared by general surgery for discharge Thank you kindly for this consultation. We will continue to follow during hospitalization. The impression and plan of care has been dictated by Krysta Arriaga, nurse practitioner as directed. Dr. Leonid MD I have performed a history and examination and MDM of this patient, discussed the same with the dictator, and agree with the dictator's assessment and plan as written ,documented as a scribe. Based on total visit time, I have performed more than 50% of the visit. Any additional findings or plans will be noted. Objective - Vital Signs Vital signs: Vital Signs Temp 97.6 F 10/25/24 12:22 Pulse 56 L 10/25/24 12:22 Resp 20 10/25/24 12:22 BP 170/83 10/25/24 12:22 Pulse Ox 97 10/25/24 12:22 FiO2 Intake & Output 10/24/24 10/25/24 10/25/24 18:59 06:59 18:59 Intake Total 2860 1180 Output Total 5 1820 Balance 2855 -640 Intake: IV 1300 Oral 1560 1180 Output: Urine 1820 Straight 1820 Estimated Blood Loss 5 Other: Voiding Method Toilet Toilet Urinal Urinal # Voids 5 - Labs CBC & Chem 7: 10/25/24 04:33 10/25/24 04:33 Labs: Abnormal Lab Results - Last 24 Hours (Table) 10/25/24 10/25/24 Range/Units 04:33 04:33 MPV 9.2 L (9.5-12.2) FL Anion Gap 13.00 H (4.00-12.00) mmol/L BUN/Creatinine Ratio 9.67 L (12.00-20.00) Ratio Glucose 139 H (70-110) mg/dL Calcium 8.5 L (8.7-10.3) mg/dL AST 54 H (14-35) U/L ALT 93 H (10-49) U/L Alkaline Phosphatase 221 H (41-126) U/L Microbiology - Last 24 Hours (Table) 10/22/24 14:17 Blood Culture - Preliminary Blood
== END 2024-10-25 14:33 | disposition home or self-care (01) ==
LOC: EC 23:20 → 5NMEDONC 10-22 04:27 → 3SCARD 10-22 07:36 → 5NMEDONC 10-22 14:21
PROVIDERS: ADMIT Surgery; ATTEND Surgery
DX: K80.00 Calculus of gallbladder with acute cholecystitis without obstruction (principal); E87.20 Acidosis, unspecified; K76.0 Fatty (change of) liver, not elsewhere classified; I10 Essential (primary) hypertension; R73.03 Prediabetes; E78.5 Hyperlipidemia, unspecified; I45.10 Unspecified right bundle-branch block; M10.9 Gout, unspecified; M19.90 Unspecified osteoarthritis, unspecified site; R79.89 Other specified abnormal findings of blood chemistry; R97.20 Elevated prostate specific antigen [PSA]; R33.9 Retention of urine, unspecified; Z79.82 Long term (current) use of aspirin; Z79.899 Other long term (current) drug therapy; Z88.8 Allergy status to other drugs, medicaments and biological substances
CPT/HCPCS: 47562; S2900; 36415; 71045; 74181; 76705; 80053; 80061; 81003; 82150; 83036; 83605; 83690; 84484; 85025; 85610; 85730; 87040; 88304; 93005; 93306; 96365; 96366; 96372; 96375; 96376; 99285